=== PATIENT | female | born 1970 | race Caucasian/White ===

== ENCOUNTER 2024-03-02 01:19 | Observation (INO) | payer BC, SELFPAY ==
[2024-03-02] VITALS (30 sets, daily range): BP systolic 111–156; BP diastolic 52–82; PULSE 74–98; TEMP 36.7–37.2; O2SAT 96–100; BMI 36.8; BMI 35.1
--- NOTE | 2024-03-02 01:37 | ECG_ITS ---
[facility] Test Date: 2024-03-02 Pat Name: CHRISSIE ORDONEZ Department: Room: - Gender: Female [employer]: : 1970 Requested By: [id number] Order Number: [id number] Reading MD: SELINA IZQUIERDO Measurements Intervals Leon Rate: 81 P: 60 NH: 140 QRS: 51 QRSD: 78 T: 47 QT: 380 QTc: 417 Interpretive Statements 1100 Sinus rhythm 9110 normal ECG No previous ECG available for comparison Electronically Signed On 03-02-2024 7:01:07 EDT by SELINA IZQUIERDO
--- NOTE | 2024-03-02 01:37 | ED.GENADUL1 ---
HPI HPI - General Adult General Chief complaint: Weakness Stated complaint: GENERAL WEAKNESS VOMITING Time Seen by Provider: 03/02/24 01:20 Source: patient Mode of arrival: Wheelchair Limitations: no limitations History of Present Illness HPI narrative: 53-year-old female presents to the emergency department for the concern that she is anemic. She states she is a little bit weak. She states she was anemic 24 years ago and had to have a blood transfusion. That was her only blood transfusion ever. She still has regular monthly periods and is on her period yesterday which started yesterday. No syncope chest pain or abdominal pain. Related Data Home Medications ?Medication ?Instructions ?Recorded ?Confirmed No Known Home Medications 03/02/24 03/02/24 Allergies Allergy/AdvReac Type Severity Reaction Status Date / Time guaifenesin [From Mucinex] AdvReac Verified 03/02/24 01:29 Opioid HPI Opioid Management Most Recent Opioid Data: No Data to Display Review of Systems ROS Narrative A ten point review of systems is negative except as noted above. Exam Narrative Exam Narrative: Nurses note and vital signs reviewed and patient is not hypoxic. General: The patient appears well and in no apparent distress. Patient is resting comfortably on cart. Skin: Warm, dry, no pallor noted. There is no rash noted. Head: Normocephalic, atraumatic Eye: Normal conjunctiva, no drainage Ears, Nose, Mouth, and Throat: oral mucosa is moist. Nares patent. Cardiovascular: Regular Rate and Rhythm Respiratory: Patient is in no distress, no accessory muscle use, lungs are clear to auscultation, no wheezing, rales or rhonchi Back: non-tender GI: Soft and Musculoskeletal: The patient has no evidence of calf tenderness, no pitting edema, symmetrical pulses noted bilaterally Neurological: A&O, normal speech Psychiatric: Cooperative Constitutional Vital Signs, click to edit/add: Last Vital Signs Temp 99.0 F 03/02/24 03:34 Pulse 89 03/02/24 03:34 Resp 16 03/02/24 03:34 BP 127/81 03/02/24 03:34 Pulse Ox 100 03/02/24 03:34 O2 Del Method Room Air 03/02/24 01:38 Course Vital Signs Vital signs: Vital Signs Temperature 98.2 F 03/02/24 01:24 Pulse Rate 94 H 03/02/24 01:24 Respiratory Rate 18 03/02/24 01:24 Blood Pressure 122/52 03/02/24 01:24 Pulse Oximetry 100 03/02/24 01:24 Oxygen Delivery Method Room Air 03/02/24 01:24 Temperature 99.0 F 03/02/24 03:34 Pulse Rate 89 03/02/24 03:34 Respiratory Rate 16 03/02/24 03:34 Blood Pressure 127/81 03/02/24 03:34 Pulse Oximetry 100 03/02/24 03:34 Oxygen Delivery Method Room Air 03/02/24 01:38 Medical Decision Making MDM Narrative Medical decision making narrative: The patient presents with anemia, hemoglobin is 5.1. I suspect this is of long duration. She does not appear pale and she is not hypotensive or tachycardic. At this point I believe that her origin is going to be gynecologic. CAT scan is abnormal showing fibroid but also a mass in the endometrial cavity and a pelvic ultrasound was recommended. Blood is ordered and is being administered here and she is being admitted. Findings were discussed thoroughly with the patient. Differential Diagnosis Differential Diagnosis: Anemia, uterine cancer Lab Data Lab results reviewed: Yes I reviewed the patient's lab results Labs: Lab Results 03/02/24 Range/Units 01:34 WBC 22.8 H (4.0-11.0) 10^3/uL RBC 3.07 L (4.20-5.40) 10^6/uL Hgb 5.1 L* (12.0-16.0) g/dL Hct 20.7 L* (36.0-48.0) % MCV 67.4 L (81.0-99.0) fL MCH 16.6 L (26.7-34.0) pg MCHC 24.6 L (29.9-35.2) g/dL RDW 22.9 H (11.0-15.0) % Plt Count 322 (150-450) 10^3/uL Neut % (Auto) 84.2 H (43.0-75.0) % Lymph % (Auto) 11.3 L (20.5-60.0) % Falls % (Auto) 3.6 (1.7-12.0) % Eos % (Auto) 0.0 L (0.9-7.0) % Baso % (Auto) 0.2 (0.2-2.0) % Neut # (Auto) 19.2 H (1.4-6.5) 10^3/uL Lymph # (Auto) 2.6 (1.2-3.8) 10^3/uL [place] # (Auto) 0.8 (0.3-0.8) 10^3/uL Eos # (Auto) 0.0 (0.0-0.7) 10^3/uL Baso # (Auto) 0.0 (0.0-0.1) 10^3/uL Abs Immat Gran (auto) 0.16 H (0.00-0.03) 10^3/uL Imm/Tot Granulo (auto) 0.7 H (0.0-0.5) % PT 12.0 H (9.0-11.6) sec INR 1.14 APTT 20.9 L (22.3-36.2) sec Sodium 136 (136-145) mmol/L Potassium 4.3 (3.5-5.1) mmol/L Chloride 104 (98-107) mmol/L Carbon Dioxide 21.0 (21.0-32.0) mmol/L Anion Gap 15.3 BUN 18.0 (7.0-18.0) mg/dL Creatinine 1.48 H (0.55-1.02) mg/dL Est GFR ( Amer) 45 L (>=60) Est GFR (Non-Af Amer) 37 L (>=60) BUN/Creatinine Ratio 12.2 Glucose 170 H (74-106) mg/dL Calcium 8.8 (8.5-10.1) mg/dL Total Bilirubin 0.7 (0.2-1.0) mg/dL Direct Bilirubin 0.2 (0.0-0.2) mg/dL AST 23 (15-37) U/L ALT 22 (14-59) U/L Alkaline Phosphatase 80 (46-116) U/L Total Protein 7.3 (6.4-8.2) g/dL Albumin 3.2 L (3.4-5.0) g/dL Globulin 4.1 g/dL Albumin/Globulin Ratio 0.8 Amylase 24 L (25-115) U/L Lipase 21.0 (16.0-77.0) U/L Serum HCG, Qual Negative (NEGATIVE) Blood Type A Positive Antibody Screen Negative Crossmatch See Detail Imaging Data CT scan - abdomen: Radiologist's impression: ITS Impressions Abdomen/Pelvis CT 03/02/24 01:57 IMPRESSION: 1. There is a heterogeneously enhancing 4.9 centimeter structure seen in the fundus with cystic appearing areas. This may represent a degenerating fibroid. 2. There is soft tissue density seen within the endometrial cavity measuring up to 1.9 centimeters concerning for a mass. Endometrium appears thickened but this may also represent heterogeneous complex fluid within the endometrial cavity. 3. Pelvic ultrasound and/or MR is recommended for further evaluation due to concern for uterine malignancy. 4. Hydropic appearance of the gallbladder with a large gallstone. Mild surrounding inflammatory changes concerning for acute cholecystitis. Correlate with LFTs and right upper quadrant ultrasound can be considered for further evaluation as clinically warranted. 5. Mildly nodular contour of the liver suggesting cirrhosis. Electronically authenticated by: ADRIEN LEDEZMA Date: 03/02/2024 03:06 ECG Data Attestation: I personally reviewed and interpreted this ECG as follows: (EKG on my interpretation shows normal sinus rhythm with a rate of 81 and no acute change) Discharge Plan Discharge Chief Complaint: Weakness Clinical Impression: Anemia Patient Disposition: Admitted As Inpatient Time of Disposition Decision: 03:44 Condition: Good
[2024-03-02 01:44] LABS: Basophils Percent Auto 0.2 % (0.2-2.0); Immature Granulocytes Abs Auto 0.16 10^3/uL (0.00-0.03); Immature Granulocytes Pct Auto 0.7 % (0.0-0.5); Lymphocytes Absolute Auto 2.6 10^3/uL (1.2-3.8); Lymphocytes Percent Auto 11.3 % (20.5-60.0); Mean Corpuscular HGB Conc 24.6 g/dL (29.9-35.2); Mean Corpuscular Hemoglobin 16.6 pg (26.7-34.0); Mean Corpuscular Volume 67.4 fL (81.0-99.0); Monocytes Absolute Auto 0.8 10^3/uL (0.3-0.8); Monocytes Percent Auto 3.6 % (1.7-12.0); Neutrophils Absolute Auto 19.2 10^3/uL (1.4-6.5); Neutrophils Percent Auto 84.2 % (43.0-75.0); Platelet Count 322 10^3/uL (150-450); Red Blood Count 3.07 10^6/uL (4.20-5.40); Red Cell Distribution Width 22.9 % (11.0-15.0); White Blood Count 22.8 10^3/uL (4.0-11.0)
[2024-03-02 01:52] LABS: Hemoglobin 5.1 g/dL (12.0-16.0)
[2024-03-02 01:53] LABS: Hematocrit 20.7 % (36.0-48.0)
[2024-03-02 01:55] LABS: Anion Gap 15.3; BUN Creatinine Ratio 12.2; Calcium 8.8 mg/dL (8.5-10.1); Chloride 104 mmol/L (98-107); Estimated GFR (African America 45 (>=60); Estimated GFR (Non-African Ame 37 (>=60); Glucose 170 mg/dL (74-106); Potassium 4.3 mmol/L (3.5-5.1); Sodium 136 mmol/L (136-145)
--- NOTE | 2024-03-02 01:57 | CT_ITS ---
The [address] [address] Patient Name: CHRISSIE ORDONEZ MRN: [id number] date: 1970 Sex: F Assigned Patient Location: ER Current Patient Location: ER Accession/Order Number: [id number] Exam Date: 03/02/2024 02:18 Report Date: 03/02/2024 03:06 At the request of: TODD REDD Procedure: CT abdomen pelvis w con EXAM: CT abdomen pelvis w con HISTORY: Anemia COMPARISON: None. TECHNIQUE: CT abdomen and pelvis with intravenous contrast. Dose reduction techniques were achieved by using automated exposure control and/or adjustment of mA and/or kV according to patient size and/or use of iterative reconstruction technique. FINDINGS: TUBES AND IMPLANTS: None. LOWER CHEST: Unremarkable ABDOMEN and PELVIS ABDOMINAL WALL AND SOFT TISSUES: Unremarkable. BONES: Multilevel degenerative changes of the spine. Chronic appearing T12 compression deformity with loss of height centrally percent. ARTERIES: No aortoiliac aneurysm VEINS: Unremarkable. LYMPH NODES: Unremarkable. PERITONEUM/ RETROPERITONEUM: Unremarkable. BOWEL: No obstruction APPENDIX: Unremarkable LIVER: Mildly nodular contour. GALLBLADDER: Hydropic appearing with a large 2.3 centimeter stone stone . Mild surrounding inflammatory changes. BILE DUCTS: Not dilated SPLEEN: Unremarkable PANCREAS: Unremarkable. ADRENALS: Unremarkable. KIDNEYS/ URETERS: Unremarkable. REPRODUCTIVE ORGANS: There is a heterogeneously enhancing 4.9 centimeter structure seen in the fundus with cystic appearing areas. There are soft tissue density seen within the endometrial cavity measuring up to 1.9 centimeters. Endometrium appears thickened but this may represent heterogeneous complex fluid within the endometrial cavity. URINARY BLADDER: Unremarkable. CT/CT abdomen pelvis w con IMPRESSION: 1. There is a heterogeneously enhancing 4.9 centimeter structure seen in the fundus with cystic appearing areas. This may represent a degenerating fibroid. 2. There is soft tissue density seen within the endometrial cavity measuring up to 1.9 centimeters concerning for a mass. Endometrium appears thickened but this may also represent heterogeneous complex fluid within the endometrial cavity. 3. Pelvic ultrasound and/or MR is recommended for further evaluation due to concern for uterine malignancy. 4. Hydropic appearance of the gallbladder with a large gallstone. Mild surrounding inflammatory changes concerning for acute cholecystitis. Correlate with LFTs and right upper quadrant ultrasound can be considered for further evaluation as clinically warranted. 5. Mildly nodular contour of the liver suggesting cirrhosis. Electronically authenticated by: ADRIEN LEDEZMA Date: 03/02/2024 03:06
[2024-03-02 02:01] LABS: HCG Qualitative NEGATIVE (NEGATIVE)
[2024-03-02 02:12] LABS: INR 1.14; Partial Thromboplastin Time 20.9 sec (22.3-36.2)
[2024-03-02 02:18] LABS: Alanine Aminotransferase 22 U/L (14-59); Albumin Globulin Ratio 0.8; Albumin Level 3.2 g/dL (3.4-5.0); Alkaline Phosphatase 80 U/L (46-116); Amylase 24 U/L (25-115); Aspartate Amino Transferase 23 U/L (15-37); Bilirubin Direct 0.2 mg/dL (0.0-0.2); Bilirubin Total 0.7 mg/dL (0.2-1.0); Globulin 4.1 g/dL; Total Protein 7.3 g/dL (6.4-8.2)
[2024-03-02] MEDS: 0.9 % SODIUM CHLORIDE 250 ML IV.SOLN IV (03:15)
[2024-03-02 06:51] LABS: Lactate/Lactic Acid 4.5 mmol/L (0.4-2.0)
[2024-03-02 06:54] LABS: Percent Iron Saturation 3.8 %
--- NOTE | 2024-03-02 07:56 | US_ITS ---
[address] [address] Patient Name: CHRISSIE ORDONEZ MRN: [id number] date: 1970 Sex: F Assigned Patient Location: [place] Current Patient Location: [place] Accession/Order Number: [id number] Exam Date: 03/02/2024 09:20 Report Date: 03/02/2024 10:25 At the request of: ANDREA SMITH Procedure: US pelvis EXAMINATION: US pelvis HISTORY: uterine mass COMPARISON: CT abdomen pelvis 03/02/2024 TECHNIQUE: Transabdominal and/or transvaginal sonographic examination was performed as indicated by examination type. FINDINGS: UTERUS: Within fundal myometrium is a 5.0 x 4.9 x 4.9 cm heterogeneous avascular mass which appears to contact the fundal endometrium. Uterus size: 14.5 x 8.4 x 6.3 cm ENDOMETRIUM: Approaches upper limits of normal in thickness. No appreciable mass or increased vascularity. Endometrial thickness: 13 mm RIGHT OVARY: Normal size and appearance. Blood flow present within ovary on color Doppler. Ovary size: 3.7 x 3.6 x 2.3 cm LEFT OVARY: Not seen. No suspicious adnexal findings. CUL-DE-SAC: Unremarkable. No significant free fluid. BLADDER: Unremarkable. OTHER: None. US/US pelvis IMPRESSION: 1. Heterogeneous 5.0 cm mass within uterine fundus suspected represent a leiomyoma. This appears to contact the margin of the endometrium and may contribute to vaginal bleeding. 2. No appreciable endometrial mass. Thickness approaches upper limits of normal, but is otherwise unremarkable. Electronically authenticated by: NILS KWON Date: 03/02/2024 10:25
--- NOTE | 2024-03-02 07:57 | CM.NOTE ---
Rounds made with Dr. Fuller, will consult Dr. Perez and bone cooking operator for further recommendations. Possible discharge this afternoon if pt remains stable.
--- NOTE | 2024-03-02 08:07 | P.HP_ITS ---
HPI H&P: HPI History of Present Illness Chief complaint: GENERAL WEAKNESS VOMITING ANEMIA Narrative: Patient with a history of anemia 24 years ago presented to emergency room with increasing weakness and felt her anemia was back. There is no etiology found back 24 years ago, she states she does have a strong family history of anemia. She has not seen a doctor in decades. When I saw her up in the medical surgical floor, she was in bed resting comfortably, denies any complaints including abdominal pain. Overall she does feel somewhat improved from admission. Patient denies melena, hematochezia, hematic hematemesis, she does states she has been having some heavy periods lately. Opioid HPI Opioid Management Most Recent Opioid Data: Last Pain Assessment 03/02/24 08:01 Last ORT Total Score 0 03/02/24 04:22 Last ORT Risk Category Low Risk 03/02/24 04:22 Review of Systems ROS Status of ROS 10 or more systems reviewed and unremark able except as noted in history and below PFS PFS Medical History (Updated 03/02/24 @ 04:34 by April Ray RN) Heart murmur ?R01.1 - Cardiac murmur, unspecified (ICD-10) Family History (Updated 03/02/24 @ 04:35 by April Ray, ZAID) Other Family history of CHF (congestive heart failure) Family history of COPD (chronic obstructive pulmonary disease) Family history of cancer Family history of diabetes mellitus Family history of stroke Social History (Updated 03/02/24 @ 04:37 by April Ray RN) Within the past year, how often did you have a drink containing alcohol: monthly or less Within the past year, how many standard drinks containing alcohol did you have on a typical day: 1 or 2 Total score: 0 Score interpretation: A score less than 3 is consistent with normal alcohol consumption. Smoking status: Former smoker Non-prescribed substance use: denies use Highest level of school completed/degree received: high school graduate Are you now , , , , never or living with a partner: In a typical week, how many times do you talk on the telephone with family, friends, or neighbors: 3 or more times per week How often do you get together with friends or relatives: 3 or more times per week How often do you attend hinduism or mormon services: never Little interest or pleasure in doing things: not at all Feeling down, depressed, or hopeless: not at all Feel stressed/tense/nervous/anxious/difficulty sleeping: rather much Do you think of yourself as: straight/heterosexual Gender Identity: female Meds Home Medications and Allergies Home Medications ?Medication ?Instructions ?Recorded ?Confirmed ?Type No Known Home Medications 03/02/24 03/02/24 History Allergies Allergy/AdvReac Type Severity Reaction Status Date / Time guaifenesin [From Mucinex] AdvReac Verified 03/02/24 01:29 Exam Constitutional Vital Signs, click to edit/add: Last Vital Signs Temp 98.8 F 03/02/24 08:03 Pulse 78 03/02/24 08:03 Resp 16 03/02/24 08:03 BP 156/76 H 03/02/24 08:03 Pulse Ox 98 03/02/24 07:03 O2 Del Method Room Air 03/02/24 07:03 Documenting provider has reviewed patient's vital signs: yes Common normals: no apparent distress Chest Common normals: inspection of chest normal Respiratory Common normals: normal respiratory effort and no retractions Cardio Common normals: regular rate and regular rhythm; murmurs detected (Patient with longstanding history of heart murmur) Heart sounds: murmur continuous and systolic GI Common normals: Normal to inspection, nondistended, normoactive bowel sounds present, soft to palpation, non-tender, no hepatosplenomegaly and no masses Results Labs Labs: Short CBC 03/02/24 Range/Units 01:34 WBC 22.8 H (4.0-11.0) 10^3/uL Hgb 5.1 L* (12.0-16.0) g/dL Hct 20.7 L* (36.0-48.0) % Plt Count 322 (150-450) 10^3/uL BMP 03/02/24 01:34 Sodium 136 Potassium 4.3 Chloride 104 Carbon Dioxide 21.0 BUN 18.0 Creatinine 1.48 H Glucose 170 H Calcium 8.8 Liver Function 03/02/24 Range/Units 01:34 Total Bilirubin 0.7 (0.2-1.0) mg/dL Direct Bilirubin 0.2 (0.0-0.2) mg/dL AST 23 (15-37) U/L ALT 22 (14-59) U/L Alkaline Phosphatase 80 (46-116) U/L Albumin 3.2 L (3.4-5.0) g/dL Assessment and Plan Assessment and Plan (1) Anemia: (2) Heart murmur: Plan Respiratory distress, weakness, severe anemia, leukocytosis-possibly has underlying chronic anemia, exacerbated by her heavy periods recently. Transfused 2 units so far. Depending on results of hemoglobin later today if stable later today likely discharge to home and can continue workup as an outpatient. Leukocytosis-no certain infectious etiology elucidated but with positive lactate she was placed on IV antibiotics. Follow-up lactate is pending. As well as repeat white blood cell count. Leukocytosis may be secondary to the anemia as well. Uterine fibroid but also possible mass, this may be just representing intrauterine blood products secondary to the bleeding with her period currently. Will reassess vaginal bleeding later today. Consider Provera. Follow-up with gynecology as an outpatient. Gallstones-patient without right upper quadrant tenderness. Can monitor as an outpatient CT scan is consistent with possible early cirrhosis. But liver function test are normal, patient denies drinking Mildly elevated BUN and creatinine-likely related to dehydration in the anemia. Monitor as an outpatient Hyperglycemia on admission likely nonfasting Mild protein calorie malnutrition-monitor as an outpatient, diet supplementation Admission status: With possible recurrence of anemia and likely related to her vaginal bleeding, patient likely discharged home later today so we will keep as observation status from the beginning of the admission.
[2024-03-02] MEDS: ERTAPENEM SODIUM 1 GM in 0.9 % SODIUM CHLORIDE 50 ML IV (09:02)
[2024-03-02 09:14] LABS: Basophils Percent Auto 0.2 % (0.2-2.0); Eosinophils Absolute Auto 0.1 10^3/uL (0.0-0.7); Eosinophils Percent Auto 0.6 % (0.9-7.0); Hematocrit 26.3 % (36.0-48.0); Hemoglobin 7.6 g/dL (12.0-16.0); Immature Granulocytes Abs Auto 0.14 10^3/uL (0.00-0.03); Immature Granulocytes Pct Auto 0.6 % (0.0-0.5); Lymphocytes Absolute Auto 3.1 10^3/uL (1.2-3.8); Lymphocytes Percent Auto 14.1 % (20.5-60.0); Mean Corpuscular Hemoglobin 21.2 pg (26.7-34.0); Monocytes Absolute Auto 1.2 10^3/uL (0.3-0.8); Monocytes Percent Auto 5.3 % (1.7-12.0); Neutrophils Absolute Auto 17.2 10^3/uL (1.4-6.5); Neutrophils Percent Auto 79.2 % (43.0-75.0); Platelet Count 234 10^3/uL (150-450); Red Blood Count 3.59 10^6/uL (4.20-5.40); White Blood Count 21.7 10^3/uL (4.0-11.0)
[2024-03-02 09:44] LABS: Alanine Aminotransferase 24 U/L (14-59); Albumin Globulin Ratio 0.7; Albumin Level 2.9 g/dL (3.4-5.0); Alkaline Phosphatase 78 U/L (46-116); Anion Gap 12.8; Aspartate Amino Transferase 27 U/L (15-37); BUN Creatinine Ratio 17.7; Bilirubin Total 1.8 mg/dL (0.2-1.0); Calcium 8.8 mg/dL (8.5-10.1); Carbon Dioxide 24.4 mmol/L (21.0-32.0); Chloride 102 mmol/L (98-107); Estimated GFR (African America >60 (>=60); Estimated GFR (Non-African Ame >60 (>=60); Globulin 3.9 g/dL; Glucose 119 mg/dL (74-106); Potassium 4.2 mmol/L (3.5-5.1); Sodium 135 mmol/L (136-145); Total Protein 6.8 g/dL (6.4-8.2)
[2024-03-02 09:46] LABS: Lactate/Lactic Acid 1.1 mmol/L (0.4-2.0)
[2024-03-02 09:51] LABS: Mean Corpuscular HGB Conc 28.9 g/dL (29.9-35.2)
[2024-03-02 09:52] LABS: Mean Corpuscular Volume 73.3 fL (81.0-99.0)
[2024-03-02 10:45] LABS: Bilirubin Urine NEGATIVE (NEGATIVE); Blood Urine LARGE (NEGATIVE); Clarity Urine CLEAR (CLEAR); Color Urine YELLOW (YELLOW); Glucose Urine UA NEGATIVE (NEGATIVE); Ketones Urine NEGATIVE (NEGATIVE); Leukocyte Esterase Urine NEGATIVE (NEGATIVE); Nitrite Urine NEGATIVE (NEGATIVE); Protein Urine NEGATIVE (NEG/TRACE); Urobilinogen Urine 0.2 EU/dL (0.2-1.0); pH Urine 5.5 (5.0-9.0)
[2024-03-02 10:56] LABS: RBC Urine 20-50 #/HPF (0-2); WBC Urine 0-2 #/HPF (NONE SEEN)
[2024-03-02 10:57] LABS: Bacteria Urine TRACE #/HPF (NONE SEEN); Cast Seen? NONE SEEN #/LPF (NONE SEEN); Crystals Seen? None Seen #/HPF (None Seen); Mucus Urine NONE SEEN (NONE SEEN); Squamous Epithelial Cell Urine RARE #/LPF (NONE/RARE); Urine Culture Indicated ALREADY ORDERED
[2024-03-02 14:40] LABS: Basophils Absolute Auto 0.1 10^3/uL (0.0-0.1); Basophils Percent Auto 0.3 % (0.2-2.0); Eosinophils Percent Auto 0.1 % (0.9-7.0); Hematocrit 24.2 % (36.0-48.0); Hemoglobin 7.1 g/dL (12.0-16.0); Immature Granulocytes Abs Auto 0.12 10^3/uL (0.00-0.03); Immature Granulocytes Pct Auto 0.6 % (0.0-0.5); Lymphocytes Absolute Auto 3.5 10^3/uL (1.2-3.8); Lymphocytes Percent Auto 16.8 % (20.5-60.0); Mean Corpuscular HGB Conc 29.3 g/dL (29.9-35.2); Mean Corpuscular Hemoglobin 20.8 pg (26.7-34.0); Mean Platelet Volume 10.4 fL (9.5-13.5); Monocytes Absolute Auto 1.5 10^3/uL (0.3-0.8); Monocytes Percent Auto 7.1 % (1.7-12.0); Neutrophils Absolute Auto 15.5 10^3/uL (1.4-6.5); Neutrophils Percent Auto 75.1 % (43.0-75.0); Platelet Count 218 10^3/uL (150-450); Red Blood Count 3.41 10^6/uL (4.20-5.40); White Blood Count 20.7 10^3/uL (4.0-11.0)
[2024-03-02 14:41] LABS: Red Cell Distribution Width 25.3 % (11.0-15.0)
--- NOTE | 2024-03-02 14:58 | P.DS_ITS ---
DS: Providers Provider Date of admission: 03/02/24 09:05 Primary care physician: Non-Staff Physician, DS: Diagnosis Discharge Diagnosis (1) Anemia: (2) Heart murmur: Plan Respiratory distress, weakness, severe anemia, leukocytosis-possibly has underlying chronic anemia, exacerbated by her heavy periods recently. Transfused 2 units so far. Hemoglobin came up 2 points Leukocytosis-no certain infectious etiology elucidated but with positive lactate she was placed on IV antibiotics. Improving at the time of discharge no focal infection found, discharging with antibiotics Uterine fibroid but also possible mass, this may be just representing intrauterine blood products secondary to the bleeding with her period currently. Follow up with SEARCH CONSULTANT Gallstones-patient without right upper quadrant tenderness. Can monitor as an outpatient CT scan is consistent with possible early cirrhosis. Monitor as an outpatient Mildly elevated BUN and creatinine-likely related to dehydration in the anemia. Monitor as an outpatient Hyperglycemia on admission likely nonfasting Mild protein calorie malnutrition-monitor as an outpatient, diet supplementation Admission status: With possible recurrence of anemia and likely related to her vaginal bleeding, patient likely discharged home later today so we will keep as observation status from the beginning of the admission. ? DS: Summary Hospital Course Hospital Course: Patient admitted with increasing weakness and found to have significant anemia. She was given 2 units of PRBCs with improvement in her hemoglobin by 2 points. She does feel much improved. The option of staying on monitoring blood work 1 additional day was presented to her, she was comfortable going home and following up with blood work tomorrow. She also follow-up with hematology and SEARCH CONSULTANT. And needs to establish to PCP. Status at Discharge Overall status at discharge: patient is not back to baseline Time Spent with Patient Time attestation: Total time spent providing and/or coordinating discharge services: Time spent: greater than 30 minutes Exam Constitutional Vital Signs, click to edit/add: Last Vital Signs Temp 98.3 F 03/02/24 13:06 Pulse 78 03/02/24 13:06 Resp 18 03/02/24 13:06 BP 133/82 03/02/24 13:06 Pulse Ox 96 03/02/24 13:06 O2 Del Method Room Air 03/02/24 13:06 Documenting provider has reviewed patient's vital signs: yes Common normals: no apparent distress Chest Common normals: inspection of chest normal Respiratory Common normals: normal respiratory effort and no retractions Cardio Common normals: regular rate and regular rhythm; murmurs detected (Patient with longstanding history of heart murmur) Heart sounds: murmur continuous and systolic GI Common normals: Normal to inspection, nondistended, normoactive bowel sounds present, soft to palpation, non-tender, no hepatosplenomegaly and no masses DS: Data Data Completed and Pending Labs on day of discharge: Labs from last 24 hours 03/02/24 03/02/24 03/02/24 14:30 10:34 09:06 WBC 20.7 H 21.7 H RBC 3.41 L 3.59 L Hgb 7.1 L 7.6 L Hct 24.2 L 26.3 L MCV 71.0 L 73.3 L MCH 20.8 L 21.2 L MCHC 29.3 L 28.9 L RDW 25.3 H 26.0 H Plt Count 218 234 MPV 10.4 Neut % (Auto) 75.1 H 79.2 H Lymph % (Auto) 16.8 L 14.1 L [place] % (Auto) 7.1 5.3 Eos % (Auto) 0.1 L 0.6 L Baso % (Auto) 0.3 0.2 Neut # (Auto) 15.5 H 17.2 H Lymph # (Auto) 3.5 3.1 [place] # (Auto) 1.5 H 1.2 H Eos # (Auto) 0.0 0.1 Baso # (Auto) 0.1 0.0 Abs Immat Gran (auto) 0.12 H 0.14 H Imm/Tot Granulo (auto) 0.6 H 0.6 H PT INR APTT Sodium 135 L Potassium 4.2 Chloride 102 Carbon Dioxide 24.4 Anion Gap 12.8 BUN 17.0 Creatinine 0.96 Est GFR ( Amer) >60 Est GFR (Non-Af Amer) >60 BUN/Creatinine Ratio 17.7 Glucose 119 H Lactate 1.1 Calcium 8.8 Iron TIBC % Saturation Ferritin Total Bilirubin 1.8 H Direct Bilirubin AST 27 ALT 24 Alkaline Phosphatase 78 Total Protein 6.8 Albumin 2.9 L Globulin 3.9 Albumin/Globulin Ratio 0.7 Amylase Lipase Serum HCG, Qual Urine Color Yellow Urine Clarity Clear Urine pH 5.5 Ur Specific [place] 1.010 Urine Protein Negative Urine Glucose (UA) Negative Urine Ketones Negative Urine Occult Blood Large A Urine Nitrite Negative Urine Bilirubin Negative Urine Urobilinogen 0.2 Ur Leukocyte Esterase Negative Urine RBC 20-50 A Urine WBC 0-2 A Ur Squamous Epith Cells Rare Urine Crystals None seen Urine Bacteria Trace A Urine Casts None seen Urine Mucus None seen Ur Culture Indicated? Already ordered Blood Type Antibody Screen Crossmatch 03/02/24 01:34 WBC 22.8 H RBC 3.07 L Hgb 5.1 L* Hct 20.7 L* MCV 67.4 L MCH 16.6 L MCHC 24.6 L RDW 22.9 H Plt Count 322 MPV Neut % (Auto) 84.2 H Lymph % (Auto) 11.3 L [place] % (Auto) 3.6 Eos % (Auto) 0.0 L Baso % (Auto) 0.2 Neut # (Auto) 19.2 H Lymph # (Auto) 2.6 [place] # (Auto) 0.8 Eos # (Auto) 0.0 Baso # (Auto) 0.0 Abs Immat Gran (auto) 0.16 H Imm/Tot Granulo (auto) 0.7 H PT 12.0 H INR 1.14 APTT 20.9 L Sodium 136 Potassium 4.3 Chloride 104 Carbon Dioxide 21.0 Anion Gap 15.3 BUN 18.0 Creatinine 1.48 H Est GFR ( Amer) 45 L Est GFR (Non-Af Amer) 37 L BUN/Creatinine Ratio 12.2 Glucose 170 H Lactate 4.5 H* Calcium 8.8 Iron 17.0 L TIBC 445.0 % Saturation 3.8 Ferritin 4.0 L Total Bilirubin 0.7 Direct Bilirubin 0.2 AST 23 ALT 22 Alkaline Phosphatase 80 Total Protein 7.3 Albumin 3.2 L Globulin 4.1 Albumin/Globulin Ratio 0.8 Amylase 24 L Lipase 21.0 Serum HCG, Qual Negative Urine Color Urine Clarity Urine pH Ur Specific [place] Urine Protein Urine Glucose (UA) Urine Ketones Urine Occult Blood Urine Nitrite Urine Bilirubin Urine Urobilinogen Ur Leukocyte Esterase Urine RBC Urine WBC Ur Squamous Epith Cells Urine Crystals Urine Bacteria Urine Casts Urine Mucus Ur Culture Indicated? Blood Type A Positive Antibody Screen Negative Crossmatch See Detail Discharge Plan Discharge Disposition: Home, Self-Care Condition: Good Discharge Medications: New ferrous sulfate 325 mg (65 mg iron) tablet 325 mg PO BID Qty: 60 11RF levofloxacin 750 mg tablet 750 mg PO DAILY 10 Days Qty: 10 0RF Outpatient Diagnostics: Complete Blood Count Auto Diff (Routine) Timeframe: 1 Day Facility: [facility] - Location: Patient Own Location Ordered By: Tobin Fuller Activity: resume usual activities as tolerated Diet: regular diet Print Language: Yakut Patient Instructions: Anemia (DC) Forms: Portal Instructions Follow Up Appointments: March 04 @ 1:30pm with Dr. Perez [phone] *make sure to bring your photo ID and insurance cards with you Sat. March 06 @ 10:00am with Dr. Rankin [phone] *make sure to bring your photo ID and insurance cards with you . March 24 @ 8:45am with Dr. Ty (Hematology) at [facility] [phone] *bring any daily medications in their original bottles to this appt.
--- NOTE | 2024-03-03 14:47 | CM.DCFOLLOWU ---
1st attempt, no answer 03/03/24
--- NOTE | 2024-03-06 15:51 | CM.DCFOLLOWU ---
Person spoke with: patient How are you feeling? well How is your pain? no pain Did you understand your discharge instructions? yes Do you have any questions about your discharge instructions? no Were you given any prescriptions at discharge? yes Were you able to get your prescriptions filled? yes Do you understand how to take your medications as ordered? yes Do you have any questions about your follow up appointment and do you plan to keep your follow up appointment? no questions reviewed follow ups with pt Is there anything else that you would like to discuss? no Questions/Comments/Concerns/Other: no
== END 2024-03-02 16:22 | disposition home or self-care (01) ==
LOC: ER 03:52 → MS 06:47
PROVIDERS: Nurse Practitioner Acute Care; Admitting Provider Family Medicine; Emergency Provider Emergency Medicine; Visit Provider Family Medicine
DX: D62 Acute posthemorrhagic anemia (principal); R06.03 Acute respiratory distress; D72.829 Elevated white blood cell count, unspecified; D25.9 Leiomyoma of uterus, unspecified; K80.20 Calculus of gallbladder without cholecystitis without obstruction; R79.89 Other specified abnormal findings of blood chemistry; R73.9 Hyperglycemia, unspecified; E44.1 Mild protein-calorie malnutrition; R01.1 Cardiac murmur, unspecified; N92.0 Excessive and frequent menstruation with regular cycle; Z68.35 Body mass index [BMI] 35.0-35.9, adult; Z87.891 Personal history of nicotine dependence
CPT/HCPCS: 36415; 74177; 76856; 80048; 80053; 80076; 81001; 82150; 82728; 83540; 83550; 83605; 83690; 84703; 85014; 85018; 85025; 85610; 85730; 86850; 86900; 86901; 87086; 93005; 96365; 99285; G0328; G0378; J1335; P9016; Q9967

== ENCOUNTER 2024-03-03 16:25 | Outpatient (OUT) | payer BC, SELFPAY ==
[2024-03-03 16:38] LABS: Basophils Absolute Auto 0.1 10^3/uL (0.0-0.1); Basophils Percent Auto 0.5 % (0.2-2.0); Eosinophils Absolute Auto 0.2 10^3/uL (0.0-0.7); Eosinophils Percent Auto 1.3 % (0.9-7.0); Immature Granulocytes Abs Auto 0.05 10^3/uL (0.00-0.03); Immature Granulocytes Pct Auto 0.4 % (0.0-0.5); Lymphocytes Absolute Auto 3.2 10^3/uL (1.2-3.8); Lymphocytes Percent Auto 24.4 % (20.5-60.0); Mean Corpuscular HGB Conc 28.2 g/dL (29.9-35.2); Mean Corpuscular Hemoglobin 20.6 pg (26.7-34.0); Mean Corpuscular Volume 73.2 fL (81.0-99.0); Mean Platelet Volume 10.2 fL (9.5-13.5); Monocytes Absolute Auto 0.9 10^3/uL (0.3-0.8); Monocytes Percent Auto 6.7 % (1.7-12.0); Neutrophils Absolute Auto 8.8 10^3/uL (1.4-6.5); Neutrophils Percent Auto 66.7 % (43.0-75.0); Platelet Count 256 10^3/uL (150-450); Red Blood Count 3.25 10^6/uL (4.20-5.40); Red Cell Distribution Width 25.7 % (11.0-15.0); White Blood Count 13.2 10^3/uL (4.0-11.0)
[2024-03-03 16:42] LABS: Hematocrit 23.8 % (36.0-48.0); Hemoglobin 6.7 g/dL (12.0-16.0)
== END 2024-03-03 16:26 | disposition home or self-care (01) ==
LOC: LAB 16:26
PROVIDERS: Visit Provider Family Medicine
DX: D64.9 Anemia, unspecified (principal)
CPT/HCPCS: 36415; 85025

== ENCOUNTER 2024-03-04 14:45 | Outpatient (RCR) | payer BC, SELFPAY ==
[2024-03-04 14:57] VITALS: BP 147/69; PULSE 78; TEMP 37.5; O2SAT 97
--- NOTE | 2024-03-04 15:05 | PC.NURSE ---
1445 Arrival ambulatory to chair 3, alert and oriented, denies any complaints, alert oriented, lungs clear to auscultation, heart tones strong regular with murmur noted. Educated on blood transfusions s/s of reaction. verbalizes understanding. 1450 IV initiated #22 rt inner forearm, tolerated well. NS initiated at kvo.
[2024-03-04 15:13] VITALS: BP 138/76; PULSE 69; TEMP 37.6
[2024-03-04 15:14] VITALS: BP 124/62; PULSE 72; TEMP 37; O2SAT 100
--- NOTE | 2024-03-04 15:16 | PC.NURSE ---
tolerating prbc's withoutnay issues, rate increased to 200 ml hr.
--- NOTE | 2024-03-04 16:11 | PC.NURSE ---
1610 prbc'd infused, ns flush initiated, tolerated well. lungs clear throughout posteriorly, heart tones strong and regular.
--- NOTE | 2024-03-04 16:23 | PC.NURSE ---
Flush completed. IV dc'd catheter intact. covered with cottonball and coban, tolerated well. Released ambulatory
== END 2024-03-04 16:00 | disposition home or self-care (01) ==
LOC: INF 14:45
PROVIDERS: Visit Provider Family Medicine
DX: D64.9 Anemia, unspecified (principal)
CPT/HCPCS: 36415; 36430; 86850; 86900; 86901; P9016

== ENCOUNTER 2024-03-05 14:45 | Outpatient (OUT) | payer BC, SELFPAY | END 2024-03-05 14:46 | disposition home or self-care (01) | LOC: PST 14:46 | PROVIDERS: Visit Provider Surgery | DX: Z01.818 Encounter for other preprocedural examination (principal); D50.9 Iron deficiency anemia, unspecified; N85.8 Other specified noninflammatory disorders of uterus ==

== ENCOUNTER 2024-03-06 08:39 | Day surgery (SDC) | payer BC, SELFPAY ==
[2024-03-05 15:23] VITALS: BP 126/71; PULSE 85; TEMP 36.3; O2SAT 99; BMI 36.4
[2024-03-06 08:55] VITALS: BP 136/87; PULSE 68; TEMP 36.6; O2SAT 100; BMI 36.3
[2024-03-06 08:59] LABS: Basophils Absolute Auto 0.1 10^3/uL (0.0-0.1); Basophils Percent Auto 0.9 % (0.2-2.0); Eosinophils Absolute Auto 0.2 10^3/uL (0.0-0.7); Eosinophils Percent Auto 3.1 % (0.9-7.0); Hematocrit 27.7 % (36.0-48.0); Hemoglobin 7.9 g/dL (12.0-16.0); Immature Granulocytes Abs Auto 0.03 10^3/uL (0.00-0.03); Immature Granulocytes Pct Auto 0.4 % (0.0-0.5); Lymphocytes Absolute Auto 1.6 10^3/uL (1.2-3.8); Mean Corpuscular HGB Conc 28.5 g/dL (29.9-35.2); Mean Corpuscular Hemoglobin 21.5 pg (26.7-34.0); Mean Corpuscular Volume 75.3 fL (81.0-99.0); Monocytes Absolute Auto 0.5 10^3/uL (0.3-0.8); Monocytes Percent Auto 6.6 % (1.7-12.0); Platelet Count 244 10^3/uL (150-450); Red Cell Distribution Width 26.5 % (11.0-15.0); White Blood Count 7.4 10^3/uL (4.0-11.0)
[2024-03-06 09:15] LABS: HCG Quantitative <1 mIU/mL
[2024-03-06] MEDS: LACTATED RINGER'S SOLUTION 1,000 ML 50 ML IV (09:24)
[2024-03-06 09:30] LABS: Red Blood Count 3.68 10^6/uL (4.20-5.40)
--- NOTE | 2024-03-06 10:44 | P.ON_ITS ---
Brief Operative Note Date of procedure: 03/06/24 Pre-op diagnosis general: acute blood loss anemia, menorrhagia Post-op diagnosis: same as pre-op Procedure: NAME OF PROCEDURE: [ D&c hysteroscopy with myosure and polypectomy] prolapsed submucosal fibroid PROCEDURE: The patient was taken back to the Operating Room where she was prepped and draped in normal sterile fashion after being placed under general anesthesia without difficulty. She was also placed in the dorsal lithotomy position. A weighted speculum was placed in the patient?s vagina. The anterior lip of the cervix was identified and grasped with a single tooth tenaculum. The patient?s uterus was then sounded roughly to [? 8] cm. The patient was then gently dilated using Hegar dilators. The hysteroscope was passed through the patient?s cervix into the uterus. Both ostia were identified. fluffy appearing endometrium. No gross evidence of malignancy, gross evidence of fibroid with prolapse through the cervix. significant amount of endometrial polyps The myosure apparatus was placed through the scope, The myosure was engaged and endometrial curretting were removed along with endometrial polyp, The hysteroscope was then removed fro m the uterus. The endometrial curettings were sent out to pathology. The single tooth tenaculum was then removed from the patient's anterior lip of the cervix where excellent hemostasis was noted. All instruments were removed from the patient?s vagina. The patient tolerated the procedure well. Sponge, lap and needle counts were correct times two. The patient was taken to the Recovery Room in stable condition.Room in stable condition. Anesthesia: CARSON Surgeon: Aric Perez Estimated blood loss (mL): 10 Pathology: other (endometrial polyp, fibroid and currettings) Condition: stable Disposition: PACU Urinary Catheter Management Urinary Catheter Management Urethral: Cath placed during this visit: no
[2024-03-06 10:54] VITALS: BP 118/59; PULSE 74; O2SAT 94
[2024-03-06 11:00] VITALS: BP 101/46; PULSE 60; O2SAT 100
--- NOTE | 2024-03-06 11:13 | PC.NURSE ---
Peripad changed for small amount bloody drainage
[2024-03-06 11:16] VITALS: BP 123/59; PULSE 65; O2SAT 95
[2024-03-06] MEDS: LACTATED RINGER'S SOLUTION 1,000 ML 150 ML IV (11:49)
--- NOTE | 2024-03-06 12:36 | PC.NURSE ---
1220: pt voids without difficulty.
== END 2024-03-06 12:45 | disposition home or self-care (01) ==
PROVIDERS: Visit Provider Obstetrics & Gynecology
PROC: (CPT 952; principal; 2024-03-06 09:40)
DX: N85.8 Other specified noninflammatory disorders of uterus (principal); D50.9 Iron deficiency anemia, unspecified; N84.0 Polyp of corpus uteri; D25.0 Submucous leiomyoma of uterus
CPT/HCPCS: 58558; 36415; 84702; 85025; 88305; J1094; J2704

== ENCOUNTER 2024-03-24 07:42 | Outpatient (RCR) | payer BC, SELFPAY | END 2024-04-03 23:59 | disposition home or self-care (01) | LOC: INF 07:42 | PROVIDERS: Visit Provider Internal Medicine Hematology & Oncology | DX: D50.9 Iron deficiency anemia, unspecified (principal); K90.9 Intestinal malabsorption, unspecified; D72.829 Elevated white blood cell count, unspecified | CPT/HCPCS: G0463 ==

== ENCOUNTER 2024-04-15 07:34 | Outpatient (RCR) | payer BC, SELFPAY ==
[2024-04-08] MEDS: FERUMOXYTOL 510 MG in 0.9 % SODIUM CHLORIDE 100 ML 234 MG IV (15:18)
[2024-04-08 15:26] VITALS: BP 138/86; PULSE 69; TEMP 36.1; O2SAT 98
--- NOTE | 2024-04-08 15:29 | PC.NURSE ---
1500 Arrival ambulatory, alert oriented. Explained infusion, purpose and possible s/s of reaction, patient verbalizes understanding.
[2024-04-15 14:48] VITALS: BP 129/86; PULSE 72; TEMP 36.6; O2SAT 96
--- NOTE | 2024-04-15 14:55 | PC.NURSE ---
1448: Pt. to [facility] amb. for iron infusion. Seated in recliner. VSS. IV initiated to right forearm per. ZAID Figueredo without difficulty. Pt. tolerated well. Denies needs or c/o.
[2024-04-15] MEDS: FERUMOXYTOL 510 MG in 0.9 % SODIUM CHLORIDE 100 ML 234 MG IV (15:07)
--- NOTE | 2024-04-15 15:15 | PC.NURSE ---
1507: IV George initiated at this time.
--- NOTE | 2024-04-15 15:43 | PC.NURSE ---
1538: IV George completed at this time. Pt. without s&s of adverse reaction. IV d/c'd, pressure to site. Pt. d/c'd amb. to home.
== END 2024-04-15 16:00 | disposition home or self-care (01) ==
LOC: INF 07:34
PROVIDERS: Visit Provider Internal Medicine Hematology & Oncology
DX: D50.9 Iron deficiency anemia, unspecified (principal); K90.9 Intestinal malabsorption, unspecified; D72.829 Elevated white blood cell count, unspecified
CPT/HCPCS: 96365; Q0138

== ENCOUNTER 2025-06-08 09:08 | Outpatient (OUT) | payer BC, SELFPAY ==
--- OUTSIDE RECORDS SUMMARY | 2025-06-08 09:11 | XMS_ITS | Encounter Summary ---
Author Organization [facility] Address [address] [place] [address] Care Team Providers Care Apartment House Manager Name Role Phone Tobin Fuller MD Primary Care Provider + Dayne Abad MD Unavailable [phone] Encounter Details Date Type Department Care Team (Late st Contact Info) Description 04/01/2024 Abstract [facility] [address] [place] [id number] Aric Perez DO [address] [place] [address] Social History Tobacco Use Types Packs/Day Years Used Date Smoking Tobacco: Never Smokeless Tobacco: Never Alcohol Use Standard Drinks/Week Comments Never 0 (1 standard drink = 0.6 oz pur e alcohol) Comments Unknown Sex and Gender Information Value Date Recorded Sex Assigned at Female 03/03/2024 11:49 AM EDT Legal Sex Female 10:43 AM EDT Gender Identity Female 03/03/2024 11:49 AM EDT Sexual Orientation Not on file documented as of this encounter Plan of Treatment Not on file documented as of this encounter Visit Diagnoses Not on filedocumented in this encounter Care Teams Apartment House Manager Relationship Specialty Start Date End Date Tobin Fuller MD PCP - General Family Medicine 03/02/24 Dayne Abad MD [address] [place] [address] PCP - [place] [employer] 05/04/2410/03 documented as of this encounter
--- OUTSIDE RECORDS SUMMARY | 2025-06-08 09:11 | XMS_ITS | Clinical Summary ---
Author Organization [facility] Address [address] [place] [address] Care Team Providers Care Corn Chip Maker Name Role Phone Tobin Fuller MD Primary Care Provider [phone] Allergies Active Allergy Reactions Criticality Noted Date Comments Guaifenesin 03/04/2024 Vision changes Medications ferrous sulfate 325 (65 Fe) MG tablet Take 325 mg by mouth in the morning. Take with meals. Active terbinafine (LamISIL) 250 MG tabletIndication s:Onychomycosis Take 1 po daily x 6 weeks 42 tablet 04/02/2024 Active metroNIDAZOLE (Metrogel) 1 % gelIndications:O ther rosacea Apply to face once a day/30 days 60 g 11 04/02/2024 Active Active Problems Problem Noted Date Diagnosed Date Iron deficiency anemia due to chronic blood loss 03/09/2024 Rosacea 03/09/2024 Heart murmur, systolic 03/09/2024 Gallstone 03/09/2024 Family history of breast cancer 03/09/2024 Class 2 obesity in adult 03/09/2024 Family History Medical History Relation Name Comments Anemia Father Diabetes Father Stroke Father Anemia Mother Atrial fibrillation Mother COPD Mother Heart failure Mother blood clots Mother Cancer Other Relation Name Status Comments Father Mother Other Social History Tobacco Use Types Packs/Day Years Used Date Smoking Tobacco: Former Cigarettes Smokeless Tobacco: Never Tobacco Cessation:Counseling Given: Not Answered Alcohol Use Standard Drinks/Week Comments Never 0 (1 standard drink = 0.6 oz pur e alcohol) Comments Unknown Sex and Gender Information Value Date Recorded Sex Assigned at Female 03/03/2024 11:49 AM EDT Legal Sex Female 10:43 AM EDT Gender Identity Female 03/03/2024 11:49 AM EDT Sexual Orientation Not on file Last Filed Vital Signs Vital Sign Reading Time Taken Comments Blood Pressure 126/78 03/26/2024 2:38 PM EDT Pulse 88 03/09/2024 2:57 PM EDT Temperature 36.1 C (97 F) 03/09/2024 2:57 PM EDT Respiratory Rate 16 03/09/2024 2:57 PM EDT Oxygen Saturation 99% 03/09/2024 2:57 PM EDT Inhaled Oxygen Concentration - - Weight 87.1 kg (192 lb) 03/26/2024 2:38 PM EDT Height 154.9 cm (5' 1 ) 03/26/2024 2:38 PM EDT Body Mass Index 36.28 03/26/2024 2:38 PM EDT Plan of Treatment Not on file Insurance Care Teams Corn Chip Maker Relationship Specialty Start Date End Date Tobin Fuller MD PCP - General Family Medicine 03/02/24
--- OUTSIDE RECORDS SUMMARY | 2025-06-08 09:11 | XMS_ITS | Encounter Summary ---
Author Organization [facility] Address [address] [place] [address] Care Team Providers Care Irrigation Flume Layer Name Role Phone Tobin Fuller MD Primary Care Provider [phone] Dayne Abad MD Unavailable [phone] Encounter Details Date Type Department Care Team (Late st Contact Info) Description 03/05/2024 Orders Only [facility] [address] [place] [id number] Tobin Fuller MD [address] [place] [address] Social History Tobacco Use Types Packs/Day Years Used Date Smoking Tobacco: Never Assessed Comments Unknown Sex and Gender Information Value Date Recorded Sex Assigned at Female 03/03/2024 11:49 AM EDT Legal Sex Female 10:43 AM EDT Gender Identity Female 03/03/2024 11:49 AM EDT Sexual Orientation Not on file documented as of this encounter Plan of Treatment Not on file documented as of this encounter Procedures Procedure Name Priority Date/Time Associated Diagnosis Comments MISCELLANEOUS LAB TEST Routine 03/02/2024 7:41 AM EDT documented in this encounter Results * - Miscellaneous Test (03/02/2024 7:41 AM EDT) us Tobin Fuller MD LAB BLOOD ORDERABLES Final Resu lt documented in this encounter Visit Diagnoses Not on filedocumented in this encounter Care Teams Irrigation Flume Layer Relationship Specialty Start Date End Date Tobin Fuller MD PCP - General Family Medicine 03/02/24 Dayne Abad MD [address] [place] [address] PCP - [employer] 05/04/2410/03 documented as of this encounter
--- OUTSIDE RECORDS SUMMARY | 2025-06-08 09:13 | XMS_ITS | CCD ---
Author Organization [facility] Care Team Providers Care Hands Hanger Name Role Phone NON STAFF Primary Care Provider UnavailGarrett Lloyd Attending Provider [phone] GARRETT PEREZ Attending Unavailable HONEY SOLARES Attending Unavailable LANDY MCBRIDE Attending Unavailable ADA PATEL Attending Unavailable HONEY SOLARES Referring Unavailable NON STAFF Primary Care Provider UnavailPilar Chaves APRN Attending Provider NON STAFF Primary Care Unavailable Pilar Rao Attending Unavailable Pilar Rao Admitting Unavailable Shyann Terrell Attending Unavailable Uday Camara Attending Unavailable Uday Camara Admitting Unavailable Uday Camara Attending Unavailable Uday Camara Admitting Unavailable Allergies Allergy Classification Reported Allergen(s) Allergy Type Date of Onset Reaction(s) Facility (3 sources) guaiFENesin; Translations: [guaifenesin] Drug Allergy [facility] (8 sources) No Known Medication Allergies; Translations: [No Known Medication Allergies] Propensity to adverse reactions (disorder) [facility] Repository Problems Problem Classification Problem Date Documented Date Episodic/Chronic Acute posthemorrhagic anemia (7 sources) Acute posthemorrhagic anemia; Translations: [D62] Onset: 05-24-2025 Episodic Deficiency and other anemia (2 sources) Iron deficiency anemia; Translations: [Iron deficiency anemia, unspecified] 05-12-2025 Episodic Heart valve disorders (3 sources) Heart murmur; Translations: [Cardiac murmur, unspecified] 05-12-2025 Episodic Other lower respiratory disease (7 sources) Chronic pulmonary edema; Translations: [J81.1] Onset: 05-24-2025 Chronic Other lower respiratory disease (3 sources) Dyspnea; Translations: [Shortness of breath] 05-12-2025 Episodic Other lower respiratory disease (2 sources) Persistent cough; Translations: [Persistent cough] 05-12-2025 Episodic Other lower respiratory disease (1 source) Shortness of breath; Translations: [Shortness of breath] Onset: 05-12-2025 Episodic Results Test Name Value Interpretation Reference Range Facility Coding Queryon 05-30-2025 Coding Query Coding Query From: Shiana Guerra RN To: Uday Camara DO; Sent: 05/25/2025 07:41:46 EDT ! Subject: Coding Query Due Date/Time: 05/26/2025 07:41:00 EDT Caller Name: ELLEN RIVAS; Caller Number: Asa , M The following abnormal lab values are documented in the medical record. 05/24 Platelet 115.0 Patient was treated with: monitoring Please document the significance of the abnormal lab and treatment or clarify which diagnosis or condition these tests and treatments were associated with: [___]thrombocytopenia [___]Other: In responding to this request, please exercise your independent professional judgement. The fact that a question is asked does not imply that any particular answer is desired or expected. Thank you![email or web address] [id number] From: Uday Camara DO To: Shaina Guerra RN; Sent: 05/30/2025 16:32:33 EDT Subject: RE: Coding Query Caller Name: ELLEN RIVAS; Caller Number: Asa , M Thrombocytopenia Normal [facility] CBC w/Indiceson 05-26-2025 Anisocytosis Ql (Bld) PRESENT Invalid Interpretation Code [facility] Comment on above: Performed By: #### 2 [id number] #### [facility] [address] [place] [address] Erythrocyte distribution width (RBC) [Ratio] 29.7 % High 10.9-14.2 [facility] Comment on above: Performed By: #### 2 [id number] #### [facility] [address] [place] [address] Hematocrit (Bld) [Volume fraction] 24.8 % Low 34.0-46.0 [facility] Comment on above: Performed By: #### 2 [id number] #### [facility] [address] [place] [address] Hemoglobin (Bld) [Mass/Vol] 7.4 g/dL Low 12.0-16.0 [facility] Comment on above: Performed By: #### 2 [id number] #### [facility] [address] [place] [address] Hypochromasia PRESENT Invalid Interpretation Code [facility] Comment on above: Performed By: #### 2 [id number] #### [facility] [address] [place] [address] MCH (RBC) [Entitic mass] 19.4 pg Low 27.0-34.0 [facility] Comment on above: Performed By: #### 2 [id number] #### [facility] [address] [place] [address] MCHC (RBC) [Mass/Vol] 29.6 g/dL Low 31.4-36.0 [facility] Comment on above: Performed By: #### 2 [id number] #### [facility] [address] [place] [address] MCV (RBC) [Entitic vol] 65.4 fL Low 80.0-100.0 [facility] Comment on above: Performed By: #### 2 [id number] #### [facility] [address] [place] [address] Microcyte PRESENT Invalid Interpretation Code [facility] Comment on above: Performed By: #### 2 [id number] #### [facility] [address] [place] [address] Platelet 111.0 E9/L Low 150.0-500.0 [facility] Comment on above: Performed By: #### 2 [id number] #### [facility] [address] [place] [address] Platelet mean volume (Bld) [Entitic vol] 8.9 fL Normal 6.4-10.8 [facility] Comment on above: Performed By: #### 2 [id number] #### [facility] [address] [place] [address] RBC 3.8 E12/L Low 4.3-5.9 [facility] Comment on above: Performed By: #### 2 [id number] #### [facility] [address] [place] [address] RBC morphology finding Nom (Bld) SEE MORPHOLOGY Invalid Interpretation Code [facility] Comment on above: Performed By: #### 2 [id number] #### [facility] [address] [place] [address] WBC 6.8 E9/L Normal 4.0-11.0 [facility] Comment on above: Performed By: #### 2 [id number] #### [facility] [address] [place] [address] Inpatient Clinical Summaryon 05-26-2025 Inpatient Clinical Summary Inpatient Clinical Summary [address] [address] Clinical Summary Person Information: Name: ELLEN RIVAS Age: 54 Years : 1970 Sex: Female PCP: NONE, XXXX Marital Status: Single Race: White Ethnicity: Non- or Language: Indonesian Visit Id: Visit Reason: Cough; cough Speciality: Acuity: Enc Type: Inpatient Med Service: Medical Arrival: 05/24/2025 13:22:34 Discharge: Dispo Type: Admitted as IP to this Hosp Address: [address] [place] [id number] Provider Notes: Diagnosis: 3:Dyspnea on exertion; 4:Iron deficiency anemia Problems No Problems Documented Smoking Status: Former Smoker Functional Status: Sensory Deficits: History of Falls: Mobility Assistance Prior to Admission: Independent ADLs: Independent Current Level of Assistance for Self-Care/Mobility: Cognitive Status: Oriented x 3 Allergies No Known Medication Allergies Measurements: Height: 154.94 cm Weight: 91.1 kg Blood Pressure: 145 mmHg / 73 mmHg BMI: 36.99 kg/m2 Procedures Dilatation and curettage planned Immunizations No Immunizations Documented This Visit Final Med List: ferrous sulfate (ferrous sulfate 325 mg Tab) 1 Tablets By Mouth 2 times a day. metronidazole topical (metronidazole topical 1% gel) 1 Application Topical every day for 7 Days. Care Team Members: Attending Physician: Uday Camara DO Consulting Physician: Referring Physician: Follow up: With: Address: When: Contact [employer] Dr[facility] Perez in [place] for follow-up appointment Comments: Call for followup appointment With: Address: When: [place]X NONE , [place] Patient Education Information: Blood Transfusion, Adult, Care After, [id number]; Iron Deficiency Anemia, Adult Normal [facility] Inpatient Patient Summaryon 05-26-2025 Inpatient Patient Summary Inpatient Patient Summary ELLEN RIVAS :1970 Visit Date:05/24/2025 Inpatient Discharge Instructions Your Care Team Admitting Physician - Uday Camara DO Reason for Your Visit cough Your Diagnosis Anemia due to blood loss, acute Pulmonary edema Dyspnea on exertion Iron deficiency anemia Cough Tests Performed CTA Chest Echo Transthoracic Complete US Pelvis Non-OB Complete This Is Your Medications List ferrous sulfate (ferrous sulfate 325 mg Tab) metronidazole topical (metronidazole topical 1% gel) Procedure History Dilatation and curettage planned. Discharge Vitals Temperature (Oral) 36.9 ???C Heart Rate (Monitored) 74 Respiratory Rate 18 Blood Pressure 145/73 Weight 91.1 kg What to do next Instructions From Your Doctor Event Name Event Result Discharge Activity Ambulate as tolerated Discharge Restrictions No restrictions Discharge Diet(s) Regular Discharge Instructions RTW 05/31/2025 New Follow Up Appointments after Discharge Follow Up with Contact [employer] [facility] Perez in [place] for follow-up appointment When: Comments: Call for followup appointment Follow Up with XXXX NONE When: In 0 days Where: [place] Medications What How Much When Instructions Next Dose Unchanged ferrous sulfate (ferrous sulfate 325 mg Tab) 1 Tablets By Mouth 2 times a day 9pm 05/26/25 Unchanged metronidazole topical (metronidazole topical 1% gel) 1 Application Topical Every day Duration: 7 Days as directed Test Results CBC BMP WBC: 6.8 E9/L (05/26/25 06:22:00) Glucose Lvl: 114 mg/dL (05/25/25 05:36:00) RBC: 3.8 E12/L Low (05/26/25 06:22:00) BUN: 13 mg/dL (05/25/25 05:36:00) HGB: 7.4 gm/dL Low (05/26/25 06:22:00) Creatinine: 0.8 mg/dL (05/25/25 05:36:00) Hct: 24.8 % Low (05/26/25 06:22:00) BUN/Creat Ratio: 16 (05/25/25 05:36:00) MCV: 65.4 fL Low (05/26/25 06:22:00) Sodium Lvl: 139 mmol/L (05/25/25 05:36:00) MCH: 19.4 pg Low (05/26/25 06:22:00) Potassium Lvl: 4 mmol/L (05/25/25 05:36:00) MCHC: 29.6 gm/dL Low (05/26/25 06:22:00) Chloride: 107 mmol/L (05/25/25 05:36:00) RDW: 29.7 % High (05/26/25 06:22:00) CO2: 28 mmol/L (05/25/25 05:36:00) Platelet: 111 E9/L Low (05/26/25 06:22:00) AGAP: 8 mEq/L (05/25/25 05:36:00) MPV: 8.9 fL (05/26/25 06:22:00) Calcium Lvl: 8.5 mg/dL Low (05/25/25 05:36:00) Allergies No Known Medication Allergies Education Materials Blood Transfusion, Adult, Care After After a blood transfusion, it is common to have: ??? Bruising and soreness at the IV site. ??? A headache. Follow these instructions at home: Your doctor may give you more instructions. If you have problems, contact your doctor. Insertion site care ??? Follow instructions from your doctor about how to take care of your insertion site. This is where an IV tube was put into your vein. Make sure you: ? Wash your hands with soap and water for at least 20 seconds before and after you change your bandage. If you cannot use soap and water, use hand reproduction specialist. ? Change your bandage as told by your doctor. ??? Check your insertion site every day for signs of infection. Check for: ? Redness, swelling, or pain. ? Bleeding from the site. ? Warmth. ? Pus or a bad smell. General instructions ??? Take jyts-rji-bkqebwj and prescription medicines only as told by your doctor. ??? Rest as told by your doctor. ??? Go back to your normal activities as told by your doctor. ??? Keep all follow-up visits. You may need to have tests at certain times to check your blood. Contact a doctor if: ??? You have itching or red, swollen areas of skin (hives). ??? You have a fever or chills. ??? You have pain in the head, back, or chest. ??? You feel worried or nervous (anxious). ??? You feel weak after doing your normal activities. ??? You have any of these problems at the insertion site: ? Redness, swelling, warmth, or pain. ? Bleeding that does not stop with pressure. ? Pus or a bad smell. If you received your blood transfusion in an outpatient setting, you will be told whom to contact to report any reactions. Get help right away if: ??? You have signs of a serious reaction. This may be coming from an allergy or the body's defense system (immune system). Signs include: ? Trouble breathing or shortness of breath. ? Swelling of the face or feeling warm (flushed). ? A widespread rash. ? Dark pee (urine) or blood in the pee. ? Fast heartbeat. These symptoms may be an emergency. Get help right away. Call 911. ??? Do not wait to see if the symptoms will go away. ??? Do not drive yourself to the hospital. Summary ??? Bruising and soreness at the IV site are common. ??? Check your insertion site every day for signs of infection. ??? Rest as told by your doctor. Go back to your normal activiti (more content not included)... Normal [facility] Inpatient Patient Summary Inpatient Patient Summary [place] [id number] Patient Discharge Instructions PERSON INFORMATION Name: ELLEN RIVAS Date of : 1970 Current Date: 05/26/2025 09:36:51 PHYSICIANS Admitting Physician: Uday Camara DO Primary Care Physician: NONE, XXXX PCP Phone Number: Comment: Discharge Diagnosis: 3:Dyspnea on exertion; 4:Iron deficiency anemia Condition at Discharge: Stable ELLEN RIVAS has been given the following list of follow-up instructions, prescriptions, and patient education materials: PATIENT FOLLOW-UP INFORMATION Diet: Regular Discharge Activity: Ambulate as tolerated Discharge Restrictions: No restrictions Wound Care Instructions: Remove Your Dressing In Days Call Your Doctor For: IF UNABLE TO CONTACT YOUR PHYSICIAN AND YOU FEEL IT IS AN EMERGENCY, GO TO THE NEAREST EMERGENCY ROOM OR CALL 911 Home Treatment: Devices/Equipment: None Special Services: Additional Instructions: RTW 05/31/2025 Primary Care Physician to provide the following pending test results: Follow up: With: Address: When: Contact [employer] Dr[facility] Perez in [place] for follow-up appointment Comments: Call for followup appointment With: Address: When: XXXX NONE , [place] In the event that this physician does not participate in your insurance network, please consult with your insurance company to find a nearby participating provider. Comment: IDEVRISA SCOTTINA, have received the attached patient education materials/instruction s and have verbalized understanding: Patient Signature Date Clinican/Nurse Signature Date HERE ARE THE MEDICATION CHANGES THAT OCCURRED DURING YOUR HOSPITAL STAY Medications to Continue with No Changes Other Medications ferrous sulfate (ferrous sulfate 325 mg Tab) 1 Tablets By Mouth 2 times a day. Last Dose: ____Next Dose: ____ metronidazole topical (metronidazole topical 1% gel) 1 Application Topical every day for 7 Days. Last Dose: ____Next Dose: ____ Comment: MEDICATION LIST PROVIDED FOR YOU IS A LIST OF YOUR CURRENT MEDICATIONS. PLEASE CARRY THIS WITH YOU AT ALL TIMES. ferrous sulfate (ferrous sulfate 325 mg Tab) 1 Tablets By Mouth 2 times a day. metronidazole topical (metronidazole topical 1% gel) 1 Application Topical every day for 7 Days. Pharmacy Information: Comment: PATIENT EDUCATION INFORMATION Instructions: Blood Transfusion, Adult, Care After After a blood transfusion, it is common to have: ??? Bruising and soreness at the IV site. ??? A headache. Follow these instructions at home: Your doctor may give you more instructions. If you have problems, contact your doctor. Insertion site care ??? Follow instructions from your doctor about how to take care of your insertion site. This is where an IV tube was put into your vein. Make sure you: ? Wash your hands with soap and water for at least 20 seconds before and after you change your bandage. If you cannot use soap and water, use hand reproduction specialist. ? Change your bandage as told by your doctor. ??? Check your insertion site every day for signs of infection. Check for: ? Redness, swelling, or pain. ? Bleeding from the site. ? Warmth. ? Pus or a bad smell. General instructions ??? Take wcuo-wna-emvzzgt and prescription medicines only as told by your doctor. ??? Rest as told by your doctor. ??? Go back to your normal activities as told by your doctor. ??? Keep all follow-up visits. You may need to have tests at certain times to check your blood. Contact a doctor if: ??? You have itching or red, swollen areas of skin (hives). ??? You have a fever or chills. ??? You have pain in the head, back, or chest. ??? You feel worried or nervous (anxious). ??? You feel weak after doing your normal activities. ??? You have any of these problems at the insertion site: ? Redness, swelling, warmth, or pain. ? Bleeding that does not stop with pressure. ? Pus or a bad smell. If you received your blood transfusion in an outpatient setting, you will be told whom to contact to report any reactions. Get help right away if: ??? You have signs of a serious reaction. This may be coming from an allergy or the body's defense system (immune system). Signs include: ? Trouble breathing or shortness of breath. ? Swelling of the face or feeling warm (flushed). ? A widespread rash. ? Dark pee (urine) or blood in the pee. ? Fast heartbeat. These symptoms may be an emergency. Get help right away. Call 911. ??? Do not wait to see if the symptoms will go away. ??? Do not drive yourself to the hospital. Summary ??? Bruising and (more content not included)... Normal [facility] Interdisciplinary Note - Everardo e Manageron 05-26-2025 Interdisciplinary Note - Director Of Patient Safety Interdisciplinary Note - Director Of Patient Safety CM followed up with patient at bedside. Patient continues to deny any DC needs at this time and plan remains home when medically stable. Patient does not want assistance with setting up a PCP at this time and states he will take care of it when she gets home. Family to transport at DC. CM to follow, possible DC today. Normal [facility] Comment on above: Result Comment: Elec tronically Signed By: Lynn Donald I\.jose\Date and Time Signed: 05/26/25 11:23 EDT BMPon 05-25-2025 Anion gap [Moles/Vol] 8 mmol/L Normal 6-16 [facility] Comment on above: Performed By: #### 2 [id number] #### [facility] [address] [place] [address] BUN/Creat Ratio 16 No Units Normal 10-20 [facility] Comment on above: Performed By: #### 2 [id number] #### [facility] [address] [place] [address] Calcium [Mass/Vol] 8.5 mg/dL Low 8.9-11.1 [facility] Comment on above: Performed By: #### 2 [id number] #### [facility] [address] [place] [address] Chloride [Moles/Vol] 107 mmol/L Normal 101-111 [facility] Comment on above: Performed By: #### 2 [id number] #### [facility] [address] [place] [address] CO2 [Moles/Vol] 28 mmol/L Normal 21-31 [facility] Comment on above: Performed By: #### 2 [id number] #### [facility] [address] [place] [address] Creatinine [Mass/Vol] 0.8 mg/dL Normal 0.5-1.3 [facility] Comment on above: Performed By: #### 2 [id number] #### [facility] [address] [place] [address] Glucose [Mass/Vol] 114 mg/dL Normal 55-199 [facility] Comment on above: Performed By: #### 2 [id number] #### [facility] [address] [place] [address] Potassium [Moles/Vol] 4.0 mmol/L Normal 3.5-5.3 [facility] Comment on above: Performed By: #### 2 [id number] #### [facility] [address] [place] [address] Sodium [Moles/Vol] 139 mmol/L Normal 135-145 [facility] Comment on above: Performed By: #### 2 [id number] #### [facility] [address] [place] [address] Urea nitrogen [Mass/Vol] 13 mg/dL Normal 5-21 [facility] Comment on above: Performed By: #### 2 [id number] #### [facility] [address] [place] [address] CBC w/ Auto Diffon 5 Anisocytosis Ql (Bld) PRESENT Invalid Interpretation Code [facility] Comment on above: Performed By: #### 2 [id number] #### [facility] [address] [place] [address] Basophil Absolute 0.0 E9/L Normal 0.0-0.2 [facility] Comment on above: Performed By: #### 2 [id number] #### [facility] [address] [place] [address] Basophils/100 WBC (Bld) 0.7 % Normal 0.0-2.0 [facility] Comment on above: Performed By: #### 2 [id number] #### [facility] [address] [place] [address] Eos Absolute 0.2 E9/L Normal 0.0-0.5 [facility] Comment on above: Performed By: #### 2 [id number] #### [facility] [address] [place] [address] Eosinophils/100 WBC (Bld) 2.8 % Normal 0.0-8.0 [facility] Comment on above: Performed By: #### 2 [id number] #### [facility] [address] [place] [address] Erythrocyte distribution width (RBC) [Ratio] 29.3 % High 10.9-14.2 [facility] Comment on above: Performed By: #### 2 [id number] #### [facility] [address] [place] [address] Hematocrit (Bld) [Volume fraction] 23.6 % Low 34.0-46.0 [facility] Comment on above: Performed By: #### 2 385552 #### [facility] [address] [place] [address] Hemoglobin (Bld) [Mass/Vol] 7.2 g/dL Low 12.0-16.0 [facility] Comment on above: Performed By: #### 2 [id number] #### [facility] [address] [place] [address] Hypochromasia PRESENT Invalid Interpretation Code [facility] Comment on above: Performed By: #### 2 [id number] #### [facility] [address] [place] [address] Lymph Absolute 1.5 E9/L Normal 1.0-4.0 [facility] Comment on above: Performed By: #### 2 [id number] #### [facility] [address] [place] [address] Lymphocytes/100 WBC (Bld) 23.4 % Normal 14.0-50.0 [facility] Comment on above: Performed By: #### 2 [id number] #### [facility] [address] [place] [address] MCH (RBC) [Entitic mass] 20.4 pg Low 27.0-34.0 [facility] Comment on above: Performed By: #### 2 [id number] #### [facility] [address] [place] [address] MCHC (RBC) [Mass/Vol] 30.5 g/dL Low 31.4-36.0 [facility] Comment on above: Performed By: #### 2 [id number] #### [facility] [address] [place] [address] MCV (RBC) [Entitic vol] 66.8 fL Low 80.0-100.0 [facility] Comment on above: Performed By: #### 2 [id number] #### [facility] [address] [place] [address] Bleckley Absolute 0.5 E9/L Normal 0.2-1.0 [facility] Comment on above: Performed By: #### 2 [id number] #### [facility] [address] [place] [address] Monocytes/100 WBC (Bld) 7.3 % Normal 4.0-14.0 [facility] Comment on above: Performed By: #### 2 [id number] #### [facility] [address] [place] [address] Neutro Absolute 4.2 E9/L Normal 2.0-7.5 [facility] Comment on above: Performed By: #### 2 [id number] #### [facility] [address] [place] [address] Neutro Auto 65.8 % Normal 36.0-75.0 [facility] Comment on above: Performed By: #### 2 [id number] #### [facility] [address] [place] [address] Ovalocytes PRESENT Invalid Interpretation Code [facility] Comment on above: Performed By: #### 2 [id number] #### [facility] [address] [place] [address] Platelet 101.0 E9/L Low 150.0-500.0 [facility] Comment on above: Performed By: #### 2 [id number] #### [facility] [address] [place] [address] Platelet mean volume (Bld) [Entitic vol] 8.3 fL Normal 6.4-10.8 [facility] Comment on above: Performed By: #### 2 [id number] #### [facility] [address] [place] [address] Poikilocytosis PRESENT Invalid Interpretation Code [facility] Comment on above: Performed By: #### 2 [id number] #### [facility] [address] [place] [address] Polychromasia PRESENT Invalid Interpretation Code [facility] Comment on above: Performed By: #### 2 [id number] #### [facility] [address] [place] [address] RBC 3.5 E12/L Low 4.3-5.9 [facility] Comment on above: Performed By: #### 2 [id number] #### [facility] [address] [place] [address] RBC morphology finding Nom (Bld) SEE MORPHOLOGY Invalid Interpretation Code [facility] Comment on above: Performed By: #### 2 [id number] #### [facility] [address] [place] [address] WBC 6.4 E9/L Normal 4.0-11.0 [facility] Comment on above: Performed By: #### 2 [id number] #### [facility] [address] [place] [address] Coding Queryon 05-25-2025 Coding Query Coding Query From: Shaina Guerra RN To: Uday Camara DO; Sent: 05/25/2025 07:41:46 EDT ! Subject: Coding Query Due Date/Time: 05/26/2025 07:41:00 EDT Caller Name: ELLEN RIVAS; Caller Number: Asa , Tosha The following abnormal lab values are documented in the medical record. 05/24 Platelet 115.0 Patient was treated with: monitoring Please document the significance of the abnormal lab and treatment or clarify which diagnosis or condition these tests and treatments were associated with: [___]thrombocytopenia [___]Other: In responding to this request, please exercise your independent professional judgement. The fact that a question is asked does not imply that any particular answer is desired or expected. Thank you![email or web address] [phone] Normal [facility] Ferritinon 05-25-2025 Ferritin Lvl 2 ng/mL Low 11-307 [facility] Comment on above: Performed By: #### 2 [id number] #### [facility] [address] [place] [address] Folateon 05-25-2025 Folate Lvl 10.8 ng/mL Normal >=6.7 [facility] Comment on above: Performed By: #### 2 [id number] #### [facility] [address] [place] [address] Inpatient Clinical Summaryon 05-25-2025 Inpatient Clinical Summary Inpatient Clinical Summary [address] [address] Clinical Summary Person Information: Name: ELLEN RIVAS Age: 54 Years : 1970 Sex: Female PCP: NONE, XXXX Marital Status: Single Race: White Ethnicity: Non- or Language: Indonesian Visit Id: Visit Reason: Cough; cough Speciality: Acuity: Enc Type: Inpatient Med Service: Medical Arrival: 05/24/2025 13:22:34 Discharge: Dispo Type: Admitted as IP to this [facility] Address: [address] [place] [id number] Provider Notes: Diagnosis: 3:Dyspnea on exertion; 4:Iron deficiency anemia Problems No Problems Documented Smoking Status: Former Smoker Functional Status: Sensory Deficits: History of Falls: Mobility Assistance Prior to Admission: Independent ADLs: Independent Current Level of Assistance for Self-Care/Mobility: Cognitive Status: Oriented x 3 Allergies No Known Medication Allergies Measurements: Height: 154.94 cm Weight: 90.8 kg Blood Pressure: 140 mmHg / 85 mmHg BMI: 36.99 kg/m2 Procedures Dilatation and curettage planned Immunizations No Immunizations Documented This Visit Final Med List: ferrous sulfate (ferrous sulfate 325 mg Tab) 1 Tablets By Mouth 2 times a day. metronidazole topical (metronidazole topical 1% gel) 1 Application Topical every day for 7 Days. Care Team Members: Attending Physician: Uday Camara DO Consulting Physician: Referring Physician: Follow up: Patient Education Information: Normal [facility] Inpatient Patient Summaryon 05-25-2025 Inpatient Patient Summary Inpatient Patient Summary [place] [id number] Patient Discharge Instructions PERSON INFORMATION Name: ELLEN RIVAS Date of : 1970 Current Date: 05/25/2025 09:31:28 PHYSICIANS Admitting Physician: Uday Camara DO Primary Care Physician: NONE, XXXX PCP Phone Number: Comment: Discharge Diagnosis: 3:Dyspnea on exertion; 4:Iron deficiency anemia Condition at Discharge: ELLEN RIVAS has been given the following list of follow-up instructions, prescriptions, and patient education materials: PATIENT FOLLOW-UP INFORMATION Diet: Discharge Activity: Discharge Restrictions: Wound Care Instructions: Remove Your Dressing In Days Call Your Doctor For: IF UNABLE TO CONTACT YOUR PHYSICIAN AND YOU FEEL IT IS AN EMERGENCY, GO TO THE NEAREST EMERGENCY ROOM OR CALL 911 Home Treatment: Devices/Equipment: None Special Services: Additional Instructions: Primary Care Physician to provide the following pending test results: Follow up: In the event that this physician does not participate in your insurance network, please consult with your insurance company to find a nearby participating provider. Comment: MERY Aleman CHRISTINA, have received the attached patient education materials/instruction s and have verbalized understanding: Patient Signature Date Clinican/Nurse Signature Date HERE ARE THE MEDICATION CHANGES THAT OCCURRED DURING YOUR HOSPITAL STAY Medications to Continue with No Changes Other Medications ferrous sulfate (ferrous sulfate 325 mg Tab) 1 Tablets By Mouth 2 times a day. Last Dose: ____Next Dose: ____ metronidazole topical (metronidazole topical 1% gel) 1 Application Topical every day for 7 Days. Last Dose: ____Next Dose: ____ Comment: MEDICATION LIST PROVIDED FOR YOU IS A LIST OF YOUR CURRENT MEDICATIONS. PLEASE CARRY THIS WITH YOU AT ALL TIMES. ferrous sulfate (ferrous sulfate 325 mg Tab) 1 Tablets By Mouth 2 times a day. metronidazole topical (metronidazole topical 1% gel) 1 Application Topical every day for 7 Days. Pharmacy Information: Comment: PATIENT EDUCATION INFORMATION Instructions: Medication Leaflets: You may receive a survey from Elena Camargo asking you to rate your care experience. Your feedback is important and will help us understand what we do well and how we can improve the quality of care we provide to you, your loved ones and our community. It???s an honor to serve you. Thank you for choosing [facility] Normal [facility] Interdisciplinary Note - Everardo e Manageron 05-25-2025 Interdisciplinary Note - Director Of Patient Safety Interdisciplinary Note - Director Of Patient Safety CRM to room 214 Patient is awake, alert and oriented. Patient is from home alone. Her sister will transport at [place]. Patient verified her PCP as none ( She was given a list of PCP in area). She needs to check with her insurance company whom is excepted. Patient has no home DME. Her PLOF is independent in self care. Patient had SS consult for AD, CRM provided packet to review and she can complete them here or as an OP. Patient is inpatient. Patient is assigned to Dr Camara, see notes. Patient came in with Cough. She has a h/o iron deficiency anemia. Patient Hgb was 4.7 on 05/24, she did get 2 units of PRBC. Her HgB this AM is 7.2. Patient feels safe to return home at [place]. Patient declined any needs for DME, HH or Paramed at this time. Patient DC date TBD. CRM will get updates at 10 AM huddle. Plans for results on ECHO and Vaginal US, patient will f/u with [employer] as OP, possible DC today or 05/26 ECHO shows EF of 60-65% and Vag US shows possible Adenomyosis Patient Hgb will be rechecked in the AM and possible DC now 05/26 Patient asked how long she would be off work and per Dr Camara most likely until Saturday Normal [facility] Comment on above: Result Comment: Elec tronically Signed By: Simona Patel\.jose\Date and Time Signed: 05/25/25 14:44 EDT Interdisciplinary Note - Director Of Patient Safety Interdisciplinary Note - Director Of Patient Safety CRM to room 214 Patient is awake, alert and oriented. Patient is from home alone. Her sister will transport at [place]. Patient verified her PCP as none ( She was given a list of PCP in area). She needs to check with her insurance company whom is excepted. Patient has no home DME. Her PLOF is independent in self care. Patient had SS consult for AD, CRM provided packet to review and she can complete them here or as an OP. Patient is inpatient. Patient is assigned to Dr Camara, see notes. Patient came in with Cough. She has a h/o iron deficiency anemia. Patient Hgb was 4.7 on 05/24, she did get 2 units of PRBC. Her HgB this AM is 7.2. Patient feels safe to return home at [place]. Patient declined any needs for DME, HH or Paramed at this time. Patient DC date TBD. CRM will get updates at 10 AM huddle. Plans for results on ECHO and Vaginal US, patient will f/u with [employer] as OP, possible DC today or 05/26 Normal [facility] Comment on above: Result Comment: Elec tronically Signed By: Simona Patel\.br\Date and Time Signed: 05/25/25 11:17 EDT Ironon 05-25-2025 Iron 52 microgram/dL Normal 35-153 [facility] Comment on above: Performed By: #### 2 [id number] #### [facility] [address] [place] [id number] LDHon 05-25-2025 LDH 181 Int._Unit/L Normal 93-218 [facility] Comment on above: Performed By: #### 2 [id number] #### [facility] [address] [place] [address] Path Commenton 05-25-2025 Pathologist Comment Anti-E (anti-rh ) is an antibody directed against the E antigen, one of the Rh system antigens. Invalid Interpretation Code [facility] Comment on above: Order Comment: Order ed by System Result Comment: [Joanna ctronic Signature] Marisa Davidson MD 05/25/2025 Performed By: #### 2 [id number] #### [facility] [address] [place] [address] Path. Reviewon 05-25-2025 Path Review Microcytic hypochromic anemia with anisocytosis, microcytes and occasional ovalocytes. Polychromasia is noted. clinical correlation and follow-up is indicated to rule out iron deficiency anemia as clinically indicated. Invalid Interpretation Code [facility] Comment on above: Performed By: #### 1 [id number] #### [facility] [address] [place] [address] Retic Counton 05-25-2025 Reticulocyte 1.7 % Normal 0.5-2.2 [facility] Comment on above: Result Comment: Reti culocyte count has been corrected for anemia Performed By: #### 2 [id number] #### [facility] [address] [place] [address] TIBC Calculatedon 05-25-2025 TIBC 497 microgram/dL High 250-400 [facility] Comment on above: Performed By: #### 1 [id number] #### [facility] [address] [place] [address] Transferrin [Mass/Vol] 355 mg/dL Normal 200-370 [facility] Comment on above: Performed By: #### 1 [id number] #### [facility] [address] [place] [address] TSH With T4fr Reflexon 05-25 TSH Qn 3.10 m[IU]/L Normal 0.34-5.60 [facility] Comment on above: Performed By: #### 1 [id number] #### [facility] [address] [place] [address] US Pelvis Non-OB Completeon 05-25-2025 US Pelvis Non-OB Complete Exam Date/Time: 05/24/2025 20:19 EDT Reason for Exam: Other (please specify) Report IMPRESSION: HETEROGENEOUS UTERUS, POSSIBLY ADENOMYOSIS. OTHERWISE, NEGATIVE LIMITED ULTRASOUND OF THE PELVIS. EXAM: US Pelvis Non-OB Complete DATE: 05/24/2025 7:45 PM CLINICAL HISTORY: Technologist Comments: vaginal bleeding COMPARISON: None available. TECHNIQUE: Transabdominal ultrasound was performed of the pelvis. FINDINGS: The study is mild to moderately limited by the patient's body habitus and overlying bowel gas. The uterus is mild to moderately heterogeneous in echotexture with poor delineation of the central endometrial complex, which does not appear thickened. The uterus is anteverted and mildly anteflexed in position, without a discrete uterine mass. The left ovary appears within normal limits, with expected blood flow on Doppler analysis. The right ovary is identified. There is no significant free fluid, abnormal adnexal masses, or other findings of concern identified, within the limits of the study. The uterine measurements and estimated volume: Uterus Length: 9.9 cm Uterus Width: 6.5 cm Uterus Height: 4.4 cm Uterus Volume: 149.1 cm3 Endometrium Thickness: 0.2 cm The left ovary measurements and an estimated volume are: Left Ovary Length: 1.6 cm Left Ovary Width: 2.1 cm Left Ovary Height: 1.0 cm Left Ovary Volume: 1.8 cm3 Report Ordering Provider: Uday Camara FINAL REPORT Dictated: 05/25/2025 11:50 am Elvis Interiano MD Signed (Electronic Signature): 05/25/2025 11:50 am Signed by: Elvis Interiano MD Transcribed by: JESUS Technologist: Normal [facility] Vit B12on 05-25-2025 Cobalamin (Vitamin B12) [Mass/Vol] 256 pg/mL Normal 50-1500 [facility] Comment on above: Performed By: #### 2 [id number] #### [facility] [address] [place] [address] eGFRon 05-25-2025 eGFR 88 mL/min/1.73 m2 Normal >=59 [facility] Comment on above: Performed By: #### 1 [id number] #### [facility] [address] [place] [address] ABO/Rhon 05-24-2025 ABO/Rh Positive Invalid Interpretation Code [facility] Comment on above: Performed By: #### 2 [id number] #### [facility] [address] [place] [address] ABO/Rh History Checkon 05-24 ABO/Rh History Check Type verified by second s Normal [facility] Comment on above: Performed By: #### 1 [id number] #### [facility] [address] [place] [address] ABO/Rh Retypeon 05-24-2025 ABO/Rh Retype Interp Positive Invalid Interpretation Code [facility] Comment on above: Performed By: #### 1 [id number] #### [facility] [address] [place] [address] ABSCon 05-24-2025 ABSC Gel Interp Positive Abnormal [facility] Comment on above: Performed By: #### 1 [id number] #### [facility] [address] [place] [address] Antibody IDon 05-24-2025 Antibody ID Anti-E Invalid Interpretation Code [facility] Comment on above: Order Comment: Order ed by System Performed By: #### 2 [id number] #### [facility] [address] [place] [address] Nbr of Panels 1 Normal [facility] Comment on above: Order Comment: Order ed by System Performed By: #### 2 [id number] #### [facility] [address] [place] [address] Antigen Typeon 05-24-2025 Antigen Type E- Invalid Interpretation Code [facility] Comment on above: Performed By: #### 2 [id number] #### [facility] [address] [place] [address] Bill Patient Normal [facility] Comment on above: Performed By: #### 2 [id number] #### [facility] [address] [place] [address] BMPon 05-24-2025 Anion gap [Moles/Vol] 9 mmol/L Normal 6-16 [facility] Comment on above: Performed By: #### 2 [id number] #### [facility] [address] [place] [address] BUN/Creat Ratio 16 No Units Normal 10-20 [facility] Comment on above: Performed By: #### 2 [id number] #### [facility] [address] [place] [address] Calcium [Mass/Vol] 8.4 mg/dL Low 8.9-11.1 [facility] Comment on above: Performed By: #### 2 [id number] #### [facility] [address] [place] [address] Chloride [Moles/Vol] 109 mmol/L Normal 101-111 [facility] Comment on above: Performed By: #### 2 [id number] #### [facility] [address] [place] [address] CO2 [Moles/Vol] 25 mmol/L Normal 21-31 [facility] Comment on above: Performed By: #### 2 [id number] #### [facility] [address] [place] [address] Creatinine [Mass/Vol] 0.7 mg/dL Normal 0.5-1.3 [facility] Comment on above: Performed By: #### 2 [id number] #### [facility] [address] [place] [address] Glucose [Mass/Vol] 137 mg/dL Normal 55-199 [facility] Comment on above: Performed By: #### 2 [id number] #### [facility] [address] [place] [address] Potassium [Moles/Vol] 3.5 mmol/L Normal 3.5-5.3 [facility] Comment on above: Performed By: #### 2 [id number] #### [facility] [address] [place] [address] Sodium [Moles/Vol] 139 mmol/L Normal 135-145 [facility] Comment on above: Performed By: #### 2 [id number] #### [facility] [address] [place] [address] Urea nitrogen [Mass/Vol] 11 mg/dL Normal 5-21 [facility] Comment on above: Performed By: #### 2 [id number] #### [facility] [address] [place] [address] BNPon 05-24-2025 Natriuretic peptide B (Bld) [Mass/Vol] 86 pg/mL High 5-80 [facility] Comment on above: Performed By: #### 1 [id number] #### [facility] [address] [place] [address] Blood Bank ID#on 05-24-2025 BBID# [id number] Invalid Interpretation Code [facility] Comment on above: Performed By: #### 1 [id number] #### [facility] [address] [place] [address] CBC w/ Auto Diffon 5 Anisocytosis Ql (Bld) PRESENT Invalid Interpretation Code [facility] Comment on above: Performed By: #### 2 [id number] #### [facility] [address] [place] [address] Basophil Absolute 0.1 E9/L Normal 0.0-0.2 [facility] Comment on above: Performed By: #### 2 [id number] #### [facility] [address] [place] [address] Basophils/100 WBC (Bld) 0.9 % Normal 0.0-2.0 [facility] Comment on above: Performed By: #### 2 [id number] #### [facility] [address] [place] [address] Eos Absolute 0.2 E9/L Normal 0.0-0.5 [facility] Comment on above: Performed By: #### 2 [id number] #### [facility] [address] [place] [address] Eosinophils/100 WBC (Bld) 2.8 % Normal 0.0-8.0 [facility] Comment on above: Performed By: #### 2 [id number] #### [facility] [address] [place] [address] Erythrocyte distribution width (RBC) [Ratio] 24.0 % High 10.9-14.2 [facility] Comment on above: Performed By: #### 2 [id number] #### [facility] [address] [place] [address] Hematocrit (Bld) [Volume fraction] 16.8 % Low 34.0-46.0 [facility] Comment on above: Performed By: #### 2 [id number] #### [facility] [address] [place] [address] Hemoglobin (Bld) [Mass/Vol] 4.7 g/dL Abnormal 12.0-16.0 [facility] Comment on above: Result Comment: Crit ical Result Verified by Repeat Analysis Results called to MIGUELITO TOURE by SARATH and read back on 05/24/2025 14:27:57. Performed By: #### 2 [id number] #### [facility] [address] [place] [address] Hypochromasia PRESENT Invalid Interpretation Code [facility] Comment on above: Performed By: #### 2 [id number] #### [facility] [address] [place] [address] Lymph Absolute 1.5 E9/L Normal 1.0-4.0 [facility] Comment on above: Performed By: #### 2 [id number] #### [facility] [address] [place] [address] Lymphocytes/100 WBC (Bld) 25.2 % Normal 14.0-50.0 [facility] Comment on above: Performed By: #### 2 [id number] #### [facility] [address] [place] [address] MCH (RBC) [Entitic mass] 16.8 pg Low 27.0-34.0 [facility] Comment on above: Performed By: #### 2 [id number] #### [facility] [address] [place] [address] MCHC (RBC) [Mass/Vol] 28.1 g/dL Low 31.4-36.0 [facility] Comment on above: Performed By: #### 2 [id number] #### [facility] [address] [place] [address] MCV (RBC) [Entitic vol] 59.8 fL Low 80.0-100.0 [facility] Comment on above: Performed By: #### 2 [id number] #### [facility] [address] [place] [address] Microcyte PRESENT Invalid Interpretation Code [facility] Comment on above: Performed By: #### 2 [id number] #### [facility] [address] [place] [address] Bleckley Absolute 0.5 E9/L Normal 0.2-1.0 [facility] Comment on above: Performed By: #### 2 [id number] #### [facility] [address] [place] [address] Monocytes/100 WBC (Bld) 8.6 % Normal 4.0-14.0 [facility] Comment on above: Performed By: #### 2 800408 #### [facility] [address] [place] [address] Neutro Absolute 3.7 E9/L Normal 2.0-7.5 [facility] Comment on above: Performed By: #### 2 [id number] #### [facility] [address] [place] [address] Neutro Auto 62.5 % Normal 36.0-75.0 [facility] Comment on above: Performed By: #### 2 [id number] #### [facility] [address] [place] [address] Ovalocytes PRESENT Invalid Interpretation Code [facility] Comment on above: Performed By: #### 2 [id number] #### [facility] [address] [place] [address] Platelet 115.0 E9/L Low 150.0-500.0 [facility] Comment on above: Performed By: #### 2 [id number] #### [facility] [address] [place] [address] Platelet mean volume (Bld) [Entitic vol] 8.3 fL Normal 6.4-10.8 [facility] Comment on above: Performed By: #### 2 [id number] #### [facility] [address] [place] [address] Polychromasia PRESENT Invalid Interpretation Code [facility] Comment on above: Performed By: #### 2 [id number] #### [facility] [address] [place] [address] RBC 2.8 E12/L Low 4.3-5.9 [facility] Comment on above: Performed By: #### 2 [id number] #### [facility] [address] [place] [address] RBC morphology finding Nom (Bld) SEE MORPHOLOGY Invalid Interpretation Code [facility] Comment on above: Performed By: #### 2 [id number] #### [facility] [address] [place] [address] WBC 5.9 E9/L Normal 4.0-11.0 [facility] Comment on above: Performed By: #### 2 [id number] #### [facility] [address] [place] [address] CTA Cheston 05-24-2025 CTA Chest Exam Date/Time: 05/24/2025 15:05 EDT Reason for Exam: Shortness of breath (SOB) Report IMPRESSION: NO EVIDENCE OF PULMONARY EMBOLI. MOSAIC GROUNDGLASS PULMONARY OPACITIES, MOST LIKELY EDEMA AND/OR AIR TRAPPING. MILD CARDIOMEGALY AND CHRONIC FINDINGS, NOTED. EXAM: CTA Chest DATE: 05/24/2025 2:50 PM CLINICAL HISTORY: Shortness of breath (SOB). COMPARISON: None available TECHNIQUE: Spiral enhanced images were obtained of the chest after the infusion of intravenous contrast with pulmonary artery CTA protocol. Routine and volume rendered images were performed on a three-dimensional workstation. All CT scans at this facility use dose modulation, iterative reconstruction, and/or weight based dosing when appropriate to reduce radiation dose to as low as reasonably achievable. Unless otherwise stated, incidental findings identified in this report do not require routine follow-up imaging. FINDINGS: Pulmonary arteries: No filling defects identified to suggest pulmonary emboli. Mildly dilated centrally. Thoracic aorta: Normal in caliber without significant atherosclerotic plaquing. There is no dissection. Heart: Mild to moderately enlarged with mitral valve calcification. No significant coronary artery calcifications identified, within the limits of cardiac motion artifact. No significant pericardial effusion. Mediastinum and lymph nodes: No pathologically enlarged mediastinal, hilar, or axillary lymph nodes. Lungs and pleura: Mosaic groundglass opacities, most likely edema and/or air trapping. Trace pleural effusions. No focal consolidation, suspicious mass, worrisome nodules, or pneumothorax. Thyroid: Unremarkable. Esophagus: Unremarkable. Musculoskeletal: No acute osseous findings identified. Chronic moderate T12 compression fracture. Upper abdomen: Morphologic changes of moderate hepatic cirrhosis. Mild to moderate splenomegaly. Report GFR (mL/min/1/73m2) 103 Contrast: Isovue 370 Contrast amount in ml's: 100.00 Ordering Provider: Shyann Terrell FINAL REPORT Dictated: 05/24/2025 3:16 pm Elvis Interiano MD Signed (Electronic Signature): 05/24/2025 3:16 pm Signed by: Elivs Interiano MD Transcribed by: JESUS Technologist: JELLY Normal [facility] D-Dimeron 05-24-2025 D-Dimer 877 CD:[id number] Abnormal 215-500 [facility] Comment on above: Result Comment: Resu lts Called To Miguelito Toure / By SARATH And Read Back For Confirmation On 05/24/2025 14:41:28 EDT Results Verified By Repeat Analysis This assay is intended for use as an aid in the diagnosis of DVT or PE. These conditions cannot be excluded with certainty solely on the basis of a D-dimer concentration being within the reference range This D-Dimer assay may be used in conjunction with a non-high clinical pretest probability assessment to exclude deep-vein thrombosis(DVT). For exclusion of venous thrombosis or pulmonary embolism the analyte D-Dimer should not be used as an aid in patients with: Therapeutic dose anticoagulant therapy for >24 hours Fibrinolytic therapy within previous 7 days Trauma or surgery within previous 4 weeks Disseminated malignacies Aortic aneurysm Sepsis, severe infections, pneumonia, severe skin infections Liver cirrhosis Performed By: #### 2 [id number] #### [facility] [address] [place] [address] ED Clinical Summaryon 2024 ED Clinical Summary ED Clinical Summary [address] [address] ED Clinical Summary Person Information [facility] Age[facility] 54 Years : 1970 Sex: Female Language: Indonesian PCP: NONE, XXXX Marital Status: Single Visit Id: Visit Reason: Cough; cough Speciality: Acuity: 4 Enc Type: Inpatient Med Service: Medical Arrival: 05/24/2025 13:22:34 Discharge: LOS: 000 04:05 Checkin: 05/24/2025 13:22:34 Checkout: 05/24/2025 17:27:07 Dispo Type: Admitted as IP to this [facility] EVENTS: Event Name Event Status Request Date/Time Start Date/Time Complete Date/Time Arrive Complete 05/24/2025 13:22:34 05/24/2025 13:22:34 05/24/2025 13:22:34 Document Home Meds Request 05/24/2025 13:22:34 Triage Complete 05/24/2025 13:22:34 05/24/2025 13:34:59 05/24/2025 13:34:59 Bed Assign Complete 05/24/2025 13:27:20 05/24/2025 13:27:20 05/24/2025 13:27:20 Dr Exam Complete 05/24/2025 13:27:20 05/24/2025 13:28:06 05/24/2025 13:28:06 RN Exam Complete 05/24/2025 13:27:20 05/24/2025 13:57:56 05/24/2025 13:57:56 Registration Complete 05/24/2025 13:28:06 05/24/2025 13:49:59 05/24/2025 13:49:59 EKG Complete 05/24/2025 13:40:14 05/24/2025 13:59:31 Pending Labs Collected 05/24/2025 13:40:14 Lab Complete 05/24/2025 13:40:14 05/24/2025 14:41:35 Patient Care Complete 05/24/2025 13:40:14 05/24/2025 13:53:22 Reg Complete Request 05/24/2025 13:49:59 Reg Bed Request Complete 05/24/2025 13:49:59 05/24/2025 13:49:59 05/24/2025 13:49:59 Pending Labs Complete 05/24/2025 13:52:55 05/24/2025 13:52:55 05/24/2025 14:16:03 Lab Complete 05/24/2025 13:52:55 05/24/2025 13:52:55 05/24/2025 14:16:03 Pending Labs Complete 05/24/2025 14:01:18 05/24/2025 14:01:18 05/24/2025 14:01:19 Pending Labs Inlab 05/24/2025 14:30:00 05/24/2025 14:30:00 Meds Admin Request 05/24/2025 14:36:04 Pending Labs Complete 05/24/2025 14:36:04 05/24/2025 14:36:04 05/24/2025 15:28:15 Blood Collect Request 05/24/2025 14:36:04 05/24/2025 14:36:04 Patient Care Request 05/24/2025 14:36:04 Pending Labs Complete 05/24/2025 14:36:19 05/24/2025 15:03:29 Lab Complete 05/24/2025 14:36:19 05/24/2025 15:03:29 CT Complete 05/24/2025 14:41:55 05/24/2025 14:50:12 05/24/2025 15:05:25 Pending Labs Complete 05/24/2025 15:09:40 05/24/2025 15:09:40 05/24/2025 15:16:21 Blood Collect Start 05/24/2025 15:09:40 05/24/2025 15:09:40 Consult Request 05/24/2025 15:21:06 Hospitalist Consult Request 05/24/2025 15:21:07 Meds Admin Request 05/24/2025 15:27:33 Pending Labs Complete 05/24/2025 15:28:16 05/24/2025 15:28:16 05/24/2025 17:02:04 Blood Collect Start 05/24/2025 15:28:16 05/24/2025 15:28:16 Pending Labs Inlab 05/24/2025 15:28:17 05/24/2025 15:28:17 Pending Labs Cancel 05/24/2025 15:45:21 05/24/2025 15:48:10 Pending Labs Complete 05/24/2025 15:47:46 05/24/2025 15:47:46 05/24/2025 16:10:27 Admit Request 05/24/2025 16:02:33 Patient Care Request 05/24/2025 16:02:33 Patient Care Request 05/24/2025 16:02:35 Patient Care Request 05/24/2025 16:02:35 Patient Care Request 05/24/2025 16:02:35 Patient Care Request 05/24/2025 16:02:35 Patient Care Request 05/24/2025 16:02:37 Patient Care Request 05/24/2025 16:02:37 Meds Admin Complete 05/24/2025 16:33:04 05/24/2025 16:37:53 Pending Labs Inlab 05/24/2025 16:48:47 05/24/2025 16:48:47 Blood Collect Start 05/24/2025 16:48:47 05/24/2025 16:48:47 ADDRESS: [address] [place] [id number] PHYS DOC NOTES: MEDICAL INFORMATION: Prescriptions Given: PATIENT EDUCATION INFORMATION: Instructions: Follow up: DIAGNOSIS: 3:Dyspnea on exertion Normal [facility] ED Note-Physicianon 05-24-20 ED Note-Physician ED Note-Physician Basic Information Time Seen: Shyann Terrell M.D. 05/24/2025 13:28 Chief Complaint cough for 4 weeks, has seen [facility] with neg cxr. History of Present Illness The patient is 54-year-old female who presented to the emergency room with cough. The patient states she has been having this cough for the past 4 weeks. The patient states sometimes she will get in coughing spells and she will feel short of breath from it and her heart would race at that time. The patient denies coughing up sputum. She denies coughing up blood. The patient states she gets short of breath with exertion. The patient denies any chest pain. She denies any fever, denies any chills. The patient denies any nausea, denies any vomiting. The patient states that she has leg swelling that gets better when she is laying down. The patient denies any abdominal pain. The patient denies any recent traveling. She denies any calf pain. The patient denies any other associated symptoms. Review of Systems Additional ROS info: Except as noted in the above Review of Systems and in the History of Present Illness all other systems have been reviewed and are negative or noncontributory. Physical Exam Vitals & Measurements T: 37.1 ???C(Oral) HR: 87(Monitored) RR: 13 BP: 124/59 SpO2: 100% HT: 154 cm WT: 91.6 kg BMI: 38.62 General: alert, no acute distress Skin: warm, dry Head: no trauma, normocephalic Neck: Trachea midline, no tenderness, supple Eye: normal conjunctiva, sclera clear, EOMI, vision unchanged ENMT: Oral mucosa moist, no pharyngeal erythema or exudate Cardiovascular: regular rate and rhythm with systolic murmur Respiratory: Lungs CTA, respirations non labored, breath sounds equal Gastrointestinal: soft, non distended, no tenderness, no guarding Extremities: no deformity, no trauma, bilateral pedal edema Neurological: Alert and oriented, speech normal, no focal neuro deficits Psychiatric: cooperative, affect appropriate for age Medical Decision Making MEDICAL DECISION MAKING Number and Complexity of Problems Differential Diagnosis: [] [facility] Data External documents reviewed: [] My EKG interpretation: [] My CT interpretation: [] My X-ray interpretation: [] My Ultrasound interpretation: [] Decision rules/scores evaluated: [] Discussed with: Hospitalist Treatment and Disposition ED Course: The patient presented with shortness of breath with exertion and cough. She has a history of heavy periods and blood transfusion in the past. Blood work reviewed. Her hemoglobin is 4.7. The patient does not appear to be pale. Blood pressure is stable. D-dimer is elevated. CT angiography of the chest shows groundglass opacity concerning for pulmonary edema. The patient is not hypoxic. The patient is typed and crossed and will be transfused with 2 units of packed red blood cells. The patient is given 20 mg of Lasix IV. She will be given 10 mg of Lasix after the first unit of packed red blood cells. The case is discussed with the hospitalist and the patient will be admitted to the hospitalist services. Shared decision making: [] Code status: [] Critical Care Time: 40 minutes, critical care time is separate from any procedures that are performed. The following was considered in the determination of critical care but not limited to the level medical decision-making, intensive cardiac and/or respiratory monitor, frequent vital sign monitoring, evaluation of laboratory studies, evaluation of a radiographic studies, oxygen monitoring and constant monitoring. Assessment/Plan 1. Anemia due to blood loss, acute (D62: Acute posthemorrhagic anemia) 2. Pulmonary edema (J81.1: Chronic pulmonary edema) 3. Dyspnea on exertion (R06.09: Other forms of dyspnea) Orders: furosemide, 20 mg = 2 mL, Injection, IV Push, Once, Stop date 05/24/25 16:32:00 EDT, STAT, Start date 05/24/25 16:32:00 EDT, 05/24/25 16:32:00 EDT furosemide, 10 mg = 1 mL, Injection, IV Push, Once, Stop date 05/24/25 15:27:00 EDT, STAT, Start date 05/24/25 15:27:00 EDT, After 1st unit given, 05/24/25 15:27:00 EDT Sodium Chloride 0.9% intravenous solution 250 mL, 250 mL, IV, 20 mL/hr, PRN Other (see comment), STAT, Start date 05/24/25 14:35:00 EDT, 12.5 hour(s), Total volume (mL): 250, 91.6 kg, 1.98, m2 ABO/Rh ABO/Rh History Check ABO/Rh Retype Antibody ID Antibody Screen B-Type Natriuretic Peptide Basic Metabolic Panel Blood Bank ID# CBC w/ Auto Diff CTA Chest D-Dimer ECG 12 Lead Adult ED Physician consult Hospitalist for continued care eGFR Extra SST Tube Hemoglobin and Hematocrit Hepatic Function Panel Path. Review Pathologist Comment Procalcitonin PT & PTT Red Cell Order Saline Lock Insert Troponin 0 Hr. UA with Cult Rflx Disposition Plan Patient Discharge Condition Stable Discharge Disposition Admitted to the hospitalist Discharge Prescription List Prescriptions No active prescription medic (more content not included)... Normal [facility] Comment on above: Result Comment: Elec tronically Signed By: Hajdari MShyann Khanna\.br\Date and Time Signed: 05/24/25 16:34 EDT ED Patient Education Noteon 05-24-2025 ED Patient Education Note ED Patient Education Note Normal [facility] ED Patient Summaryon 025 ED Patient Summary ED Patient Summary [address] [address] Patient Discharge Instructions Person Information Name: ELLEN RIVAS Age: 54 Years Arrival Date: 05/24/2025 13:22:34 Discharge Diagnosis: 3:Dyspnea on exertion Primary Care Physician: NONE, XXXX Provider Information Primary Provider: Shyann Terrell M.D. [employer]:None The exam and treatment you received in the Emergency Department were for an urgent problem and are not intended as complete care. It is important that you follow up with a doctor, nurse practitioner, or physician???s physician assistant primary care for ongoing care. If your symptoms become worse or you do not improve as expected and you are unable to reach your usual health care provider, you should return to the Emergency Department. We are available 24 hours a day. ELLEN RIVAS has been given the following list of patient education materials, prescriptions and follow-up instructions: Follow-up Instructions: In the event that this physician does not participate in your insurance network, please consult with your insurance company to find a nearby participating provider. Patient Education Materials: A MESSAGE TO ALL PATIENTS REGARDING OPIOIDS PRESCRIPTION OPIOIDS: WHAT YOU NEED TO KNOW Prescription opioids can be used to help relieve dkzmdltf-rz-nkkeej pain and are often prescribed following a surgery or injury, or for certain health conditions. These medications can be an important part of the treatment but also come with serious risks. It is important to work with your healthcare provider to make sure you are getting the safest, most effective care. WHAT ARE THE RISKS AND SIDE EFFECTS OF OPIOID USE? Prescription opioids carry serious risks of addiction and overdose, especially with prolonged use. An opioid overdose, often marked by slowed breathing, can cause sudden . The use of prescription opioids can have a number of side effects as well, even when taken as directed: ??? Tolerance???meaning you might need to take more of the medication for the same pain relief ??? Physical dependence???meaning you have symptoms of withdrawal when a medication is stopped ??? Increased sensitivity to pain ??? Constipation ??? Nausea, vomiting, and dry mouth ??? Sleepiness and dizziness ??? Confusion ??? Depression ??? Low levels of testosterone that can result in lower sex drive, energy, and strength ??? Itching and sweating RISKS ARE GREATER WITH: ??? History of drug misuse, substance use disorder, or overdose ??? Mental health conditions (such as depression or anxiety) ??? Sleep apnea ??? Older age (65 years and older) ??? Avoid alcohol while taking prescription opioids. Also, unless specifically advised by your health care provider, medications to avoid include: ??? Benzodiazepines (such as Xanax or Valium) ??? Muscle relaxants (such as Soma or Flexeril) ??? Hypnotics (such as Ambien or Lunesta) ??? Other prescription opioids KNOW YOUR OPTIONS Talk to your health care provider about ways to manage your pain that don???t involve prescription opioids. Some of these options may actually work better and have fewer risks and side effects. Options may include: ??? Pain relievers such as acetaminophen, ibuprofen, and naproxen ??? Some medication that are also used for depression or seizures ??? Physical therapy and exercise ??? Cognitive behavioral therapy, a psychological, goal-directed approach, in which patients learn how to modify physical, behavioral, and emotional triggers of pain and stress. IF YOU ARE PRESCRIBED OPIOIDS FOR PAIN: ??? Never take opioids in greater amounts or more often than prescribed. ??? Follow up with your primary health care provider. o Work together to create a plan on how to manage your pain. o Talk about ways to help manage your pain that don???t involve prescription opioids. o Talk about any and all concerns and side effects. ??? Help prevent misuse and abuse o Never sell or share prescription opioids. o Never use another person???s prescription opioids. ??? Store prescription opioids in a secure place and out of reach of others (this may include visitors, children, friends, and family). ??? Safely dispose of unused prescription opioids: Find your community drug take-back program or your pharmacy mail-back program, or flush them down the toilet, following guidance from the Food and Drug Administration (www.fda.gov/Drugs/Re sourcesForYou). ??? Visit www.cdc.gov/drugoverd ose to learn about the risks of opioids abuse and overdose. ??? If you believe you may be struggling with addiction, tell your health home care companion and ask for guidance or call [facility]???S National Helpline at 9-314-577-HELP. v Source: Department of Health and Human Services/Center for Disease Control & Preven (more content not included)... Normal [facility] Hct & Hgbon 05-24-2025 Hematocrit (Bld) [Volume fraction] 16.5 % Low 34.0-46.0 [facility] Comment on above: Performed By: #### 1 [id number] #### [facility] [address] [place] [address] Hemoglobin (Bld) [Mass/Vol] 4.7 g/dL Abnormal 12.0-16.0 [facility] Comment on above: Result Comment: Crit ical Result Verified by Repeat Analysis Results called to SHAYLA BARRETO by SARATH and read back on 05/24/2025 15:03:21. Performed By: #### 1 [id number] #### [facility] [address] [place] [address] Hep Func Panelon 05-24-2025 Albumin [Mass/Vol] 3.8 g/dL Normal 3.3-5.0 [facility] Comment on above: Performed By: #### 2 [id number] #### [facility] [address] [place] [address] Albumin/Globulin [Mass ratio] 1.2 {ratio} Normal 1.1-2.2 [facility] Comment on above: Performed By: #### 2 [id number] #### [facility] [address] [place] [address] Alk Phos 66 Int._Unit/L Normal 21-98 [facility] Comment on above: Performed By: #### 2 [id number] #### [facility] [address] [place] [address] ALT 21 Int._Unit/L Normal 6-46 [facility] Comment on above: Performed By: #### 2 [id number] #### [facility] [address] [place] [address] AST 31 Int._Unit/L Normal 5-43 [facility] Comment on above: Performed By: #### 2 [id number] #### [facility] [address] [place] [address] Bili Direct 0.2 mg/dL Normal 0.0-0.4 [facility] Comment on above: Performed By: #### 2 [id number] #### [facility] [address] [place] [address] Bili Indirect 0.4 mg/dL Normal 0.1-0.9 [facility] Comment on above: Performed By: #### 2 [id number] #### [facility] [address] [place] [address] Bili Total 0.6 mg/dL Normal 0.0-1.1 [facility] Comment on above: Performed By: #### 2 [id number] #### [facility] [address] [place] [address] Globulin (S) [Mass/Vol] 3.2 g/dL Normal 1.4-4.0 [facility] Comment on above: Performed By: #### 2 [id number] #### [facility] [address] [place] [address] Protein [Mass/Vol] 7.0 g/dL Normal 6.0-7.8 [facility] Comment on above: Performed By: #### 2 [id number] #### [facility] [address] [place] [address] PT & PTTon 05-24-2025 INR Coag (PPP) [Relative time] 1.29 {INR} Invalid Interpretation Code [facility] Comment on above: Result Comment: INR results are specifically intended to assess patients stabilized on long-term Anticoagulation therapy suggested INR???s ???Less Intensive Anticoagulation??? 2.0 ??? 3.0 Conventional Range 3.0 ??? 4.5 Performed By: #### 1 [id number] #### [facility] [address] [place] [address] PT 14.5 second(s) High 9.4-12.5 [facility] Comment on above: Result Comment: 15 d ays - 4 weeks 1 - 5 months 6 -11 months 1 ??? 5 years 6 ??? 10 years 11 -17 years Mean: 11.2 (9.5 ??? 12.6) Mean: 11.0 (9.7 ??? 12.8) Mean: 11.0 (9.8 ??? 13.0) Mean: 11.3 (9.9 ??? 13.4) Mean: 11.7 (10.0 ??? 14.6) Mean: 11.8 (10.0 - 14.1) Pediatric Reference ranges were obtained from a study by rosario Santoyo prepared from 1437 samples obtained at 7 different centers using the same coagulation reagent and instrumentation as [facility]. Currently there are no coagulation studies available worldwide for children to 14 days, and no normal ranges. Performed By: #### 1 [id number] #### [facility] [address] [place] [address] PTT 33.2 second(s) Normal 25.1-36.5 [facility] Comment on above: Result Comment: Para meter 15 days - 4 weeks 1 - 5 months 6 - 11 months 1 - 5 years 6 - 10 years 11 - 17 years PTT Mean: 35.4 (27.6-45.6) Mean: 33.5 (24.8-40.7) Mean: 32.4 (25.1-40.7) Mean: 31.6 (24.0-39.2) Mean: 31.6 (26.9-38.7) Mean: 31.0 (24.6-38.4) Pediatric Reference ranges were obtained from a study by rosario Santoyo prepared from 1437 samples obtained at 7 different centers using the same coagulation reagent and instrumentation as [facility]. Currently there are no coagulation studies available worldwide for children to 14 days, and no normal ranges. Heparin therapeutic range (represented by Anti-Factor Xa activity of 0.2 - 0.4 U/mL) corresponds to PTT of 56.6 - 109.0 sec. Performed By: #### 1 [id number] #### [facility] [address] [place] [address] Procalcitoninon 05-24-2025 Procalcitonin .15 ng/mL Normal .00-.50 [facility] Comment on above: Result Comment: <0.5 ng/mL Low risk of severe sepsis and/or shock >2.0 ng/mL High risk of severe sepsis and/or shock Concentrations under 0.5 ng/mL do not exclude local infections or systemic infections in their initial stages (e.g.. under six hours from onset of illness). PCT concentrations between 0.5 and 2.0 ng/mL should be interpreted with consideration of the patient's history. In this range, it is recommended to retest PCT within 6 to 24 hours. Performed By: #### 2 [id number] #### [facility] [address] [place] [address] RCOon 05-24-2025 # of Units 2 Invalid Interpretation Code [facility] Comment on above: Performed By: #### 1 [id number] #### [facility] [address] [place], [place] [id number] Date Required [id number] Invalid Interpretation Code [facility] Comment on above: Performed By: #### 1 [id number] #### [facility] [address] [place] [address] Order to Transfuse On Hold Normal [facility] Comment on above: Performed By: #### 1 [id number] #### [facility] [address] [id number] Product Type None Required Invalid Interpretation Code [facility] Comment on above: Performed By: #### 1 [id number] #### [facility] [address] [place], [place] [id number] Troponin 0 Hr.on 05-24-2025 Troponin HS 5.50 pg/mL Low 10.10-27.10 [facility] Comment on above: Result Comment: The 95% CI (Confidence Interval) PPV (Positive Predictive Value) for myocardial infarction in females is 38 pg/mL, in males 51 pg/mL. The results should be used in conjunction with clinical conditions of myocardial infarction. (Access High Sensitivity Troponin I Instructions For Use, Montrell Damian, June 2018) Performed By: #### 1 [id number] #### [facility] [address] [place] [address] UA with Cult Rflxon 05-24-20 25 Color (U) Light-Yellow Normal Yellow [facility] Comment on above: Result Comment: Micr oscopic readings are only performed on those samples that meet specific criteria set forth by [facility]. Performed By: #### 4 [id number] #### [facility] [address] [place] [address] Glucose (U) [Mass/Vol] Negative Normal Negative [facility] Comment on above: Performed By: #### 4 [id number] #### [facility] [address] [place] [address] Ketones Ql (U) Negative Normal Negative [facility] Comment on above: Performed By: #### 4 [id number] #### [facility] [address] [place] [address] UA Blood 2+ mg/dL Abnormal Negative [facility] Comment on above: Performed By: #### 4 [id number] #### [facility] [address] [place] [address] UA Clarity Clear Normal Clear [facility] Comment on above: Performed By: #### 4 [id number] #### [facility] [address] [place] [address] UA Leuk Est Negative Normal Negative [facility] Comment on above: Performed By: #### 4 [id number] #### [facility] [address] [place] [address] UA Mucous Negative Normal Negative [facility] Comment on above: Performed By: #### 4 [id number] #### [facility] [address] [place] [address] UA Nitrite Negative Normal Negative [facility] Comment on above: Performed By: #### 4 [id number] #### [facility] [address] [place] [address] UA pH 5.5 Invalid Interpretation Code 5.0-9.0 [facility] Comment on above: Performed By: #### 4 [id number] #### [facility] [address] [place] [address] UA Protein Negative Normal Negative [facility] Comment on above: Performed By: #### 4 [id number] #### [facility] [address] [place] [address] UA RBC 4-20 Abnormal 0-3 [facility] Comment on above: Performed By: #### 4 [id number] #### [facility] [address] [place] [address] UA Spec Grav 1.033 Invalid Interpretation Code 1.005-1.030 [facility] Comment on above: Performed By: #### 4 [id number] #### [facility] [address] [place] [address] UA Squam Epithelial 0-2 Invalid Interpretation Code [facility] Comment on above: Performed By: #### 4 [id number] #### [facility] [address] [place] [address] UA Urobilinogen Negative Normal Negative [facility] Comment on above: Performed By: #### 4 [id number] #### [facility] [address] [place] [address] Urobilinogen (U) [Mass/Vol] Negative Normal Negative [facility] Comment on above: Performed By: #### 4 [id number] #### [facility] [address] [place] [address] UA Spec Desc Clean Catch Normal [facility] Comment on above: Performed By: #### 4 [id number] #### [facility] [address] [place] [address] eGFRon 05-24-2025 eGFR 103 mL/min/1.73 m2 Normal >=59 [facility] Comment on above: Performed By: #### 1 [id number] #### [facility] [address] [place] [address] X-ray reportOrdered By: Omero Mabry on 05-12-2025 Study report [facility] Main [address] [address] XRay Report Signed Patient: Ellen Rivas (Tina) MR#: [id number] : 1970 Acct:[id number] Age/Sex: 54 / F ADM Date: 5 Loc: XDUC Room: Type: REG CLI Attending Dr: Pilar Rao MINGLE OPERATOR Copies to: Pilar Rao APRN~ Ordering Provider: Pilar Rao APRN Date of Service: 05/12/25 XR/XR chest 2V*: COUGH PA AND LATERAL CHEST: CLINICAL HISTORY: Cough shortness breath COMPARISON: None FINDINGS: Mildly prominent cardiomediastinal. Lungs clear. No effusion or pneumothorax. XR/XR chest 2V* IMPRESSION: NO ACUTE CARDIOPULMONARY ABNORMALITY. Impression dictated by: Adi Mabry M.D. 05/12/2025 3:49 PM Dictation Location: [place] [address] Transcribed By: ANTOINE 05/12/25 154 Dictated By: Adi Mabry MD 05/12/25 1548 Signed By: 05/12/25 1549 [facility] Work Phone: XR chest 2V*on 05-12-2025 XR chest 2V* [facility] Main [place] [id number] XRay Report Signed Patient: Ellen Rivas (Tina) R#: [id number] : 1970 Acct:[id number] Age/Sex: 54 / F ADM Date: 05/12/25 Loc: XDUC Room: Type: REG CLI Attending Dr: Pilar Rao MINGLE OPERATOR Copies to: Pilar Rao APRN Ordering Provider: Pilar Rao APRN Date of Service: 05/12/25 XR/XR chest 2V*: COUGH PA AND LATERAL CHEST: CLINICAL HISTORY: Cough shortness breath COMPARISON: None FINDINGS: Mildly prominent cardiomediastinal. Lungs clear. No effusion or pneumothorax. XR/XR chest 2V* IMPRESSION: NO ACUTE CARDIOPULMONARY ABNORMALITY. Impression dictated by: Aid Mabry M.D. 05/12/2025 3:49 PM Dictation Location: [id number] Transcribed By: [facility] 05/12/25 1549 Dictated By: Adi Mabry MD 05/12/25 1548 Signed By: 05/12/25 1549 Normal [facility] Vital Signs Date Time Vital Sign Value Performing Clinician Faci lity 05-12-2025 15:02-0400 Body height 154.94 cm [facility] 05-12-2025 15:02-0400 Body mass index (BMI) [Ratio] 38.2 kg/m2 [facility] 05-12-2025 15:02-0400 Body temperature 99.3 [degF] [facility] 05-12-2025 15:02-0400 Body weight 91.85 kg [facility] 05-12-2025 15:02-0400 Diastolic blood pressure 76 mm[Hg] [facility] 05-12-2025 15:02-0400 Heart rate 98 /min [facility] 05-12-2025 15:02-0400 Respiratory rate 14 /min [facility] 05-12-2025 15:02-0400 SaO2% (BldA) [Mass fraction] 100 % [facility] 05-12-2025 15:02-0400 Systolic blood pressure 131 mm[Hg] [facility] Encounters Encounter Date Encounter Type Care Provider Facility Start: 05-24-2025 End: 05-26-2025 Evaluation and management of inpatient Uday Camara Facility:[facility] Start: 05-24-2025 Emergency department patient visit Shyann Lemonrefugio Facility:[facility] Start: 05-12-2025 End: 05-12-2025 ambulatory NON STAFF [facility] Work Phone: Start: 05-12-2025 End: 05-12-2025 Patient encounter procedure Pilar Maira Givens MINGLE OPERATOR [facility] Work Phone: Start: 04-02-2024 End: 04-02-2024 ambulatory ADA PATEL Not Available Start: 03-26-2024 End: 03-26-2024 ambulatory LANDY [facility] Not Available Start: 03-09-2024 End: 03-09-2024 ambulatory HONEY SOLARES Not Available Start: 03-06-2024 End: 03-06-2024 ambulatory NON STAFF [facility] Work Phone: Start: 03-06-2024 End: 03-06-2024 Departed Referred [facility] Start: 03-04-2024 End: 03-04-2024 ambulatory GARRETT PEREZ Not Available Procedures Date Procedure Procedure Detail Performing Clinician Start: 05-12-2025 Plain chest X-ray Plan of Treatment Date Care Activity Detail Author XR Chest 2 Views [facility] Payers Date Payer Category Payer Self-pay 2017 Unknown [id number] 1970 Unknown [id number] 2.16.84 [id number] 1970 Unknown [id number] 2.16.84 [id number] 1970 Unknown [id number] 2.16.84 [id number] 1970 Unknown [id number] 2.16.84 0.1.688674.3.579.2.1258 1970 Unknown [id number] 2.16.8 40.1.883621.3.579.2. 1970 Unknown [id number] 2.16.8 40.1.596554.3.579.2. 1971 Unknown [id number] 2.16.8 40.1.970024.3.579.2.727 1970 Unknown [id number] 2.16.8 40.1.315026.3.579.2.727 1970 Unknown [id number] 2.16.8 40.1.049749.3.579.2.727 1970 Unknown [id number] 2.16.8 40.1.017741.3.579.2.727 1970 Unknown [id number] 2.16.8 40.1.489624.3.579.2.727 1970 Unknown [id number] 2.16.8 40.1.744631.3.579.2.727 1970 Unknown [id number] 2.16.8 40.1.836857.3.579.2.727 Unknown [id number] 2.16.8 40.1.721064.3.579.2.531 Social History Date Type Detail Facility Tobacco smoking stat [facility] Unknown if ever smoked [facility] Work Phone: Start: 1970 Sex Assigned At Female F [facility] Start: 05-12-2025 Tobacco smoking stat [facility] Ex-smoker (finding) [facility] Sex Female (finding) [facility] Discharge summary note 05-26-2025 Note Date & Type Note Facility 05-26-2025 Note Discharge Summary Admission and Discharge Information Admit Date/Time:05/24/2025 16:02 Admitting Physician - Uday Camara DO Admitting Diagnoses: 1. Anemia due to blood loss, acute, 05/24/2025 2. Pulmonary edema, 05/24/2025 Discharge Order Date Discharge Patient - Ordered -- 05/26/25 9:22:00 EDT, to home Discharge Diagnoses 1. Anemia due to blood loss, acute, 05/24/2025 2. Pulmonary edema, 05/24/2025 3. Dyspnea on exertion, 05/24/2025 4. Iron deficiency anemia, 05/24/2025 Cough, 05/24/2025 Procedure History Dilatation and curettage planned. Hospital Course Significant Findings Please refer to history and physical details of admission. Patient presented to the emergency room May 24 because of a cough. The cough has been present for 4 weeks getting progressively worse. It is a dry cough and she denies any fevers, chills or sweats. She does report shortness of breath but no dizziness or lightheadedness and no chest pains, fatigue or weakness. She went to urgent care in [facility] last Saturday and they did a chest x-ray that was negative. They told her she had a viral illness and was told to treat her symptomatically. She was not getting any better so she came to the emergency room. She did notice some lower extremity swelling to her feet but as pretty chronic for her as she is on her feet all day at work. In the emergency room she was hypertensive at 191/81 and tachycardic at 107 bpm. The rest of her vitals were stable and she is afebrile. She had a normal white count of 5.9 but her H&H was 4.7 and 16.8 with low MCV and low MCHC. Her platelets are 115,000. Coags show PT of 14.5 and a PTT of 33.2. D-dimer was 877. Her CMP was essentially unremarkable and troponin was 5.5 and BNP 86. Procalcitonin level 0.15. Urinalysis showed 2+ blood and 4-20 RBCs but otherwise negative. With the elevated D-dimer, CTA of the chest was done and that showed mosaic groundglass pulmonary opacities which could be edema and/or air trapping and mild cardiomegaly. No PE noted. In the ER she was typed and crossed for 2 units of packed red blood cells and placed on the medical service. Patient was placed on the medical service for acute blood loss anemia and pulmonary edema found on imaging. She does have a pretty significant heart murmur that she says she has had since . She says that she has been having 3+ days of heavy periods using up to 5-6 pads a day. She has also been having clots in her periods and her last period was last month at the end of the month. As mentioned, she received 2 units of packed red blood cells. I did do a non-OB complete vaginal ultrasound performed on May 24 and it showed heterogeneous uterus possibly adenomyosis. With the cardiac murmur and pulmonary edema on imaging, I did a 2D echo. The pulmonary edema may be flash pulmonary edema given the anemia however a 2D echo was performed and it showed an EF of 60 to 65% and mild to moderate pulmonary valve stenosis. Her hemoglobin post transfusion was 7.2 yesterday and this morning at 7.4. She does have a [employer] and [place] and she will follow-up with him. She will continue her iron supplement that she takes at home but she said that in the past she has not been compliant with it. NOTE - it took 36 minutes to evaluate and coordinate patient for discharge Procedures and Treatment Provided 1. CTA of the chest 05/24/2025 2. Ultrasound pelvic complete; non-OB 05/24/2025 3. 2D echocardiogram 05/25/2025 4. Status post 2 unit packed red blood cells Services Consulted - Completed -- 05/24/25 18:23:26 EDT Physical Exam Vitals & Measurements T: 36.4 ???C(Oral) TMIN: 36.4 ???C(Oral) TMAX: 37 ???C(Oral) HR: 69(Monitored) RR: 16 BP: 150/81 SpO2: 99% WT: 91.1 kg Constitutional: Awake and alert; oriented x 3 with no apparent distress or respiratory distress Head/neck: Neck supple with no palpable lymphadenopathy, bruits or masses; trachea midline Chest/lungs: Clear to auscultation bilaterally no wheezes or rhonchi noted bilaterally Cardiovascular:Regular rate and rhythm; normal S1 and S2 with a harsh 4/6 systolic ejection murmur not radiating to her carotids; 2+ pulses and 1+ pitting edema bilaterally Gastrointestinal: Soft, nontender, nondistended, positive bowel sounds; obese Neurological: Nonfocal; cranial nerves II through XII appear intact Psychological: Pleasant affect Tests Performed CTA Chest Echo Transthoracic Complete US Pelvis Non-OB Complete Discharge Plan Patient Discharge Condition Stable Discharge Disposition Discharge To, Anticipated II - Home independently Discharged to - Home independently Discharge Diet Discharge Diet(s): Regular (05/26/25 09:20:00) Discharge Medication List Prescriptions No active prescription medications Home ferrous sulfate 325 mg Tab, 325 mg= 1 tab(s), Oral, BID metronidazole topical 1% gel, 1 leatha, Topical, Daily Follow-up With When Contact Information Contact [employer] [facility] in [facility] (more content not included)... [facility] Comment on above: Result Comment: Elec tronically Signed By: Uday Camara DO\Date and Time Signed: 05/26/25 09:56 EDT Clinical Note 05-25-2025 Note Date & Type Note Facility 05-25-2025 Note Progress Note-Physic price Assessment/Plan 54-year-old female admitted for anemia due to acute blood loss along with a cough and shortness of breath. Her last menstrual period was end of last month and she said it was heavy for 3 days with clots which is not typical of her periods. Patient has a history of vaginal polyp status post D&C a year ago in [place], heart murmur since and iron deficiency anemia. 1. Anemia due to blood loss, acute (D62: Acute posthemorrhagic anemia) - Status post 2 unit packed red blood cells - Anemia studies to come back unremarkable - Check labs in a.m. - Vaginal ultrasound shows probable adenomyosis; she wants to follow-up with her [employer] Dr[facility] Perez in [place] Ordered: Ferritin Folate Level Initial Hospital Care/Day Moderate 55 Minutes 46514 Iron Level Lactate Dehydrogenase Reticulocyte Count TIBC Calculated TSH With T4fr Reflex Vitamin B12 Level 2. Pulmonary edema (J81.1: Chronic pulmonary edema) - Most likely secondary to her profound anemia on admission - 2D echo shows an EF of 60 to 65% with mild to moderate pulmonary valve stenosis Ordered: Initial Hospital Care/Day Moderate 55 Minutes 26343 3. Dyspnea on exertion (R06.09: Other forms of dyspnea) - Secondary to anemia - Echo noted Ordered: Initial Hospital Care/Day Moderate 55 Minutes 17895 4. Iron deficiency anemia (D50.9: Iron deficiency anemia, unspecified) - I resumed her iron supplement from home - Iron studies are unremarkable Ordered: Initial Hospital Care/Day Moderate 55 Minutes 73829 Orders: acetaminophen, 650 mg = 2 tab(s), Tab, Oral, q6hr PRN Pain, Routine, Start date 05/24/25 17:39:00 EDT benzonatate, 200 mg = 2 cap(s), Cap, Oral, TID PRN Cough, Routine, Start date 05/25/25 12:46:00 EDT, 05/25/25 12:46:00 EDT ferrous sulfate, 325 mg = 1 tab(s), Tab, Oral, BID, Routine, Start date 05/25/25 21:00:00 EDT, 05/25/25 13:15:00 EDT hydrALAZINE, 10 mg = 0.5 mL, Injection, IV Push, q6hr PRN Other (see comment), Routine, Start date 05/24/25 17:39:00 EDT ondansetron, 4 mg = 2 mL, Injection, IV Push, q6hr PRN Nausea, Routine, Start date 05/24/25 17:39:00 EDT Activity As Tolerated Basic Metabolic Panel Below the Knee Intermittent Pneumatic Compression Device Cardiac Monitoring Cardiac Monitoring CBC w/ Auto Diff Communication Order Echo Transthoracic Complete eGFR Evaluate Need For Continued Telemetry Notify Provider Vital Signs Notify Provider Vital Signs Pulse Oximetry Regular Diet Resuscitation Status - Full US Pelvis Non-OB Complete Vital Signs Weight PLAN: 1. As outlined above 2. Will repeat H&H in a.m. and if stable will discharge home; she does want to follow-up with her [employer] doctor in the outpatient setting in [place] 3. I resumed her iron supplement from home 4. Full CODE STATUS Subjective Status post 2 unit packed red blood cells Doing well voicing no complaints Review of Systems Constitutional: no fever, no chills, no sweats, no weakness Respiratory: no shortness of breath, no cough, no orthopnea, no wheezing Cardiovascular: no chest pain, no palpitations, no edema Additional ROS info: Except as noted in the above Review of Systems and in the History of Present Illness all other systems have been reviewed and are negative or noncontributory. Objective Vitals & Measurements T: 36.9 ???C(Oral) TMIN: 36.5 ???C(Oral) TMAX: 37.4 ???C(Oral) HR: 77(Monitored) RR: 18 BP: 144/77 SpO2: 97% HT: 154.94 cm WT: 90.8 kg Intake & Output This visit (24 hour periods starting at 07:00 EDT) 05/25/25 * 05/24/25 05/23/25 Total Summary Intake mL -- 663 -- Output mL -- -- -- Fluid Balance -- 663 -- Intake (2) Blood Volume Infused mL -- 660 -- furosemide mL -- 3 -- Total -- 663 -- Output (0) Counts (1) Urine Count -- 3 -- * This column has not completed the indicated time period. Physical Exam Constitutional: Awake and alert; oriented x 3 with no apparent distress or respiratory distress Head/neck: Neck supple with no palpable lymphadenopathy, bruits or masses; trachea midline Chest/lungs: Clear to auscultation bilaterally no wheezes or rhonchi noted bilaterally Cardiovascular:Regular rate and rhythm; normal S1 and S2 with a harsh 4/6 systolic ejection murmur not radiating to her carotids; 2+ pulses and 1+ pitting edema bilaterally Gastrointestinal: Soft, nontender, nondistended, positive bowel sounds; obese Neurological: Nonfocal; cranial nerves II through XII appear intact Psychological: Pleasant affect Lab Results WBC: 6.4 E9/L (05/25/25 05:36:00) RBC: 3.5 E12/L Low (05/25/25 05:36:00) HGB: 7.2 gm/dL Low (05/25/25 05:36:00) Hct: 23.6 % Low (05/25/25 05:36:00) MCV: 66.8 fL Low (05/25/25 05:36:00) MCH: 20.4 pg Low (05/25/25 05:36:00) MCHC: 30.5 gm/dL Low (05/25/25 05:36:00) RDW: 29.3 % High (05/25/25 05:36:00) Platelet: 101 E9/L Low (05/25/25 05:36:00) MPV: 8.3 fL ( (more content not included)... [facility] Comment on above: Result Comment: Elec tronically Signed By: Uday Camara DO\.br\Date and Time Signed: 05/25/25 13:20 EDT Clinical Note 05-25-2025 Note Date & Type Note Facility 05-25-2025 Note Echocardiology Procedure Exam Date/Time Accession # Ordering Dr. Hunter Transthoracic 05/25/2025 10:43 EDT [id number] Uday Camara DO Complete CPT code 42483 [id number] Reason for Exam (Echo Transthoracic Complete) Cardiac murmur (heart) Report [facility] [address] [place] [address] Adult Echocardiogram Report Name: ELLEN RIVAS Study Date: 05/25/2025 09:52 AM BP: 128/80 mmHg Patient Location: 2N^[id number]^01^[facility] HR: 90 : 1970 Gender: Female Height: 60.5 in Age: 54 yrs Ethnicity: [facility] Weight: 203 lb Reason For Study: Cardiac murmur (heart) BSA: 1.9 m2 History: Murmur,Obesity Ordering Physician: Silvestre^M. E\ Performed By: Anette Saenz, POOJA Interpretation Summary The left ventricle is normal in size. There is normal left ventricular wall thickness. Ejection Fraction = 60-65%. Pulmonary valve not well seen peak gradient was 39 mmHg, mean gradient 24 mmHg and calculated valve area 1.14 to 1.59 cm? overall compatible with mild to moderate pulmonary valve stenosis. Procedure A complete two-dimensional transthoracic echocardiogram was performed (2D, M-mode, spectral and color flow Doppler). Left Ventricle The left ventricle is normal in size. There is normal left ventricular wall thickness. The left ventricular ejection fraction is normal. Ejection Fraction = 60-65%. No obvious regional wall motion abnormalities noted. Left Ventricular filling pattern is abnormal for age. Left Atrium The left atrial size is normal. Echocardiology Report Right Atrium Right atrial size is normal. Right Ventricle The right ventricular systolic function is normal. The right ventricle is normal size. Aortic Valve The aortic valve is not well visualized. Aortic valve not well-visualized but likely normal. Mitral Valve Mild thickening of the mitral valve leaflets. Tricuspid Valve The tricuspid valve is grossly normal. There is trace tricuspid regurgitation. Estimated RVSP is 29.9 mmHg. Pulmonic Valve Pulmonary valve not well seen peak gradient was 39 mmHg, mean gradient 24 mmHg and calculated valve area 1.14 to 1.59 cm? overall compatible with mild to moderate pulmonary valve stenosis. Arteries The aortic root is normal in size. Venous The inferior vena cava is normal in size, and collapses normally with respiration. Effusion There is no pericardial effusion. MMode/2D Measurements & Calculations RVDd: 3.0 cm LVIDd: 5.6 cm FS: 46.9 % Ao root diam: 2.7 cm IVSd: 0.82 cm LVIDs: 3.0 cm EDV(Teich): 152.4 ml LVPWd: 0.98 cm ESV(Teich): 33.9 ml Ao root area: 5.6 cm2 EF(Teich): 77.7 % LA dimension: 4.4 cm asc Aorta Diam: 2.7 cm LVOT diam: 1.8 cm RVOT diam: 2.0 cm LVLd ap4: 8.0 cm LVOT area: 2.5 cm2 EDV(MOD-sp4): 90.9 ml LVLs ap4: 6.1 cm ESV(MOD-sp4): 36.8 ml EF(MOD-sp4): 59.5 % EDV(MOD-sp2): 111.0 ml SV(MOD-sp4): 54.1 ml TAPSE: 2.7 cm IVC Diam: 2.2 cm ESV(MOD-sp2): 41.4 ml EF(MOD-sp2): 62.7 % RVIDd/LVIDd: 0.53 EF (MOD-bp): 60.8 % LA Vol Index: 28.5 ml/m2 Doppler Measurements & Calculations Echocardiology Report MV E max amado: 118.0 cm/sec MV dec time: 0.19 sec Ao V2 max: 204.0 cm/sec LV V1 max P.6 mmHg MV A max amado: 97.4 cm/sec Ao max P.6 mmHg LV V1 mean P.0 mmHg MV E/A: 1.2 Ao V2 mean: 140.0 cm/sec LV V1 max: 170.0 cm/sec Lat Peak E' Amado: 8.9 cm/sec Ao mean P.0 mmHg LV V1 mean: 115.0 cm/sec E/E' Lat: 13.2 Ao V2 VTI: 40.2 cm LV V1 VTI: 35.2 cm Med Peak E' Amado: 7.9 cm/sec E/E' Med: 14.9 GOOD(I,D): 2.2 cm2 GOOD(V,D): 2.1 cm2 SV(LVOT): 89.3 ml PA V2 max: 304.0 cm/sec SV(RVOT): 90.5 ml TR max amado: 259.5 cm/sec PA max P.0 mmHg TR max P.9 mmHg PA V2 mean: 221.6 cm/sec RVSP(TR): 29.9 mmHg PA mean P.1 mmHg PA V2 VTI: 78.1 cm RAP systole: 3.0 mmHg AV VR: 0.83 GOOD(VTI)/BSA_phl: 1.2 FINAL REPORT Dictated: 05/25/2025 9:52 am Sanjeev Soni MD Signed (Electronic Signature): 05/25/2025 12:16 pm Signed by: Sanjeev Soni MD Transcribed by: CASE Technologist: ANGELINA [facility] History and physical note 05-24-2025 Note Date & Type Note Facility 05-24-2025 Note History and Physical Basic Information Admit Date/Time:05/24/2025 16:02 Chief Complaint cough History of Present Illness This is a 54-year-old white female whose past medical history is significant for: 1. Iron deficiency anemia 2. Vaginal polyp status post D&C 1 year ago at [place] 3. Heart murmur since Patient presented to the emergency room today because of a progressive cough for the past 4 weeks. The cough is a dry cough not getting any better. She was seen at urgent care in [place] Saturday of last week and needed a chest x-ray that was negative. She was diagnosed with a viral illness and was told to treated symptomatically. She has a harsh cough that is dry and she denies any fevers, chills or sweats. She does report shortness of breath but denies any dizziness or lightheadedness or chest pains and no fatigue or weakness. She does have some lower extremity swelling when she is on her feet all day when she works in her legs. Not swollen in the morning. Because her cough was not getting any better, she came into the ER to be evaluated. NOTE -patient is still having periods. Her last menstrual period was end of last month and she said it was heavy for 3 days with clots which is not typical with regards to the clots. On her heaviest days, she can go up to 5-6 pads a day. No pain or discomfort. She did have a D&C done a year ago in [place] for vaginal polyps. In the emergency room she is hypertensive at 191/81 and tachycardic at 107 bpm. She is breathing 18-minute satting at 100% on room air and she is afebrile. She has a 5.9 white count with no shift and her H&H is 4.7 and 16.8 with a low MCV and a low MCHC. Platelets are 115,000. Her PT is 14.5 and PTT 33.2 with a D-dimer of 877. Her CMP is unremarkable but her calcium is mildly low at 8.4. Troponin is 5.5 with a BNP of 86 and a procalcitonin of 0.15. Urinalysis shows 2+ blood and 4-20 RBCs but otherwise negative. CTA of the chest showed no PE but a mosaic groundglass pulmonary opacities which could be edema and/or air trapping along with mild cardiomegaly. In the emergency room she is typed and crossed for 2 units of packed red blood cells. She is admitted to the medical service for further evaluation and treatment for her anemia and pulmonary edema. PAST MEDICAL HISTORY see above PAST SURGICAL HISTORY 1. D&C 1 year ago at [place] for vaginal polyps FAMILY HISTORY Mother with a history of COPD Father unknown cause And older sister with diabetes alive and well And older brother alive and well 1 sister alive and well 1 sister that she was a dialysis patient 1 brother with a history of possible bone cancer No children SOCIAL HISTORY Patient is single/ She works at [employer] She smoked a long time ago when she was very young but has not since Very rare alcohol use No drug abuse history Full CODE STATUS Review of Systems Constitutional: no fever, no chills, no sweats, no weakness Skin: no Jaundice, no rash, no lesions, nopetechiae ENMT: no ear pain, no sore throat, no congestion, no hoarseness Respiratory: no shortness of breath, moderate cough, no orthopnea, no wheezing Cardiovascular: no chest pain, no palpitations, no edema Gastrointestinal: no nausea, no vomiting, no diarrhea, no GI bleeding Genitourinary: no dysuria, no hematuria, no discharge, no pain Musculoskeletal: no back pain, no trauma Neurologic: no headache, no dizziness, no numbness, no weakness Psychiatric: no sleeping problems, no irritability, no mood swings/depression. Heme/Lymph: no bleeding tendency, no bruising tendency, no petechiae, no swollen nodes Allergy/Immunologic: no seasonal allergies, no food allergies, no recurrent infections, no impaired immunity Additional ROS info: Except as noted in the above Review of Systems and in the History of Present Illness all other systems have been reviewed and are negative or noncontributory. Scoring Rodriguez Fall Risk Score: 20 (05/24/25) Physical Exam Vitals & Measurements T: 37.4 ???C(Oral) TMIN: 37.1 ???C(Oral) TMAX: 37.4 ???C(Oral) HR: 82(Peripheral) RR: 18 BP: 137/84 SpO2: 100% HT: 154.94 cm WT: 88.8 kg General: alert, no acute distress Skin: warm, dry Head: no trauma, normocephalic Neck: Trachea midline, no adenopathy, no tenderness Eye: normal conjunctiva, sclera clear ENMT: TM's clear, oral mucosa moist, no pharyngeal erythema or exudate Cardiovascular: Regular rate and rhythm; normal S1 and S2 with a harsh 4/6 systolic ejection murmur not radiating to her carotids; 2+ pulses and 1+ pitting edema bilaterally Respiratory: Lungs CTA, respirations non labored Chest wall: no deformity. Gastrointestinal: soft, non distended, no tenderness, no guarding; obese. Back: No tenderness, Normal ROM, Normal alignment. Extremities: no deformity, no trauma Neurological: oriented x 4, LOC appropriate for age, CN II-XII intact, motor strength equal & normal bilaterally, sensation equal & (more content not included)... [facility] Comment on above: Result Comment: Elec tronically Signed By: Uday Camara DO.br\Date and Time Signed: 05/24/25 18:49 EDT Evaluation note 05-12-2025 Note Date & Type Note Facility 05-12-2025 Evaluation note Diagnosis Onset Date Resolution Heart murmur acute May 12 3:01pm Persistent cough acute May 3:01pm Shortness of breath acute May 12, 2025 3:01pm [facility] Work Phone: Evaluation note Note Date & Type Note Facility Evaluation note No assessment information availa anmol [facility] Work Phone: Reason for referral (narrative) Note Date & Type Note Facility Reason for referral (narrative) No reason for referral information available [facility] Work Phone: Advance Directives No Advanced Directives Records Found Advance Directive Response Recorded Date/ Time Advance Directives No March 06, 2024 12:26pm Summary Purpose Family History No Family History Records Found Relationship Condition Age at Onset Recorded Date/T sarah beth mother Chronic obstructive pulmonary disease Unk nown Heart disease Unknown father Diabetes mellitus Unknown Chief Complaint and Reason for Visit Chief Complaint Admit Date Cough May 12, 2025 3:01p m Reason for Visit Admit Date Heart murmur May 12, 2025 3:01p m Persistent cough May 12, 2025 3:01p m Shortness of breath May 12, 2025 3:01p m Chief Complaint Admit Date Cough May 12, 2025 3:01p m Additional Source Comments Care Teams (unrecognized sec tion and content) Team Status: Active Member Role Status Dates NON STAFF Primary Care Provider Active Team Status: Inactive Member Role Status Dates NON STAFF Primary Care Provider Active Start: March 06, 2024 End: March 06, 2024 Garrett Perez Attending Provider Active Start: Levy oconnor 2023 End: March 06, 2024 Team Status: Inactive Member Role Status Dates NON STAFF Primary Care Provider Active Start: May 12, 2025 End: May 12, 2025 Pilar Rao APRN Attending Provider Active S tart: May 12, 2025 End: May 12, 2025 Team Status: Active Member Role Status Dates NON STAFF Primary Care Provider Active Start: May 12, 2025 Pilar Rao APRN Attending Provider Active S tart: May 12, 2025 Goals (unrecognized section and content) Goals may be documented in a n alternate sectionGoals may be documented in an alternate sectionGoals may be documented in an alternate section INFORMATION SOURCE (unrecogn ized section and content) DATE CREATED AUTHOR 04/03/2024 [facility] DATE CREATED AUTHOR AUTHOR'S ORGANIZ ATION 05/25/2025 [facility] DATE CREATED AUTHOR AUTHOR'S ORGANIZ ATION 05/26/2025 [facility] DATE CREATED AUTHOR AUTHOR'S ORGANIZ ATION 05/27/2025 [facility] DATE CREATED AUTHOR AUTHOR'S ORGANIZ ATION 05/31/2025 [facility] FOR RECORDS PERTAINING TO PATIENTS WHO ARE OR HAVE BEEN ENROLLED IN A CHEMICAL DEPENDENCY/SUBSTANCEABUSE PROGRAM, SOME INFORMATION MAY BE OMITTED. This clinical summary was aggregated from multiple sources. Caution should be exercised in using it in the provision of clinical care. This summary normalizes information from multiple sources, and as a consequence, information in this document may materially change the coding, format and clinical context of patient data. In addition, data may be omitted in some cases. CLINICAL DECISIONS SHOULD BE BASED ON THE PRIMARY CLINICAL RECORDS. [employer] provides no warranty or guarantee of the accuracy or completeness of information in this document.
[2025-06-08 16:50] LABS: Mean Corpuscular HGB Conc 28.9 g/dL (29.9-35.2); Mean Corpuscular Hemoglobin 29.2 pg (26.7-34.0); Mean Corpuscular Volume 100.8 fL (81.0-99.0); Platelet Count 544 10^3/uL (150-450); Red Blood Count 1.20 10^6/uL (4.20-5.40); Reticulocyte Pct Auto 19.00 % (0.60-3.10)
[2025-06-08 16:54] LABS: Hematocrit 12.1 % (36.0-48.0); Hemoglobin 3.5 g/dL (12.0-16.0); White Blood Count 37.1 10^3/uL (4.0-11.0)
--- NOTE | 2025-06-08 16:56 | PC.NURSE ---
1655: Pt. was at [facility] earlier (151) for scheduled MD visit with Dr. Ty. MD running behind and pt. had to leave. Blood work obtained before d/c. Lab phoned with critical labs Hgb 3.5, Hct 12.1, and WBC 37.1. Dr. Ty notified. Pt. phoned per this RN and instructed to go to closest ED. Pt. relays understanding.
[2025-06-08 17:01] LABS: Alanine Aminotransferase 44 U/L (14-59); Albumin Globulin Ratio 0.7; Albumin Level 3.4 g/dL (3.4-5.0); Alkaline Phosphatase 120 U/L (46-116); Anion Gap 14.6; Aspartate Amino Transferase 43 U/L (15-37); Blood Urea Nitrogen 32.0 mg/dL (7.0-18.0); Calcium 9.4 mg/dL (8.5-10.1); Carbon Dioxide 23.5 mmol/L (21.0-32.0); Chloride 104 mmol/L (98-107); Estimated GFR (African America >60 (>=60 mL/min/1.73m^2); Estimated GFR (Non-African Ame 54 (>=60 mL/min/1.73m^2); Globulin 4.9 g/dL; Glucose 153 mg/dL (74-106); Potassium 4.1 mmol/L (3.5-5.1); Sodium 138 mmol/L (136-145); Total Protein 8.3 g/dL (6.4-8.2)
[2025-06-08 17:20] LABS: Iron 258.0 ug/dL (50.0-170.0); Percent Iron Saturation 81.6 %; Total Iron Binding Capacity 316.0 ug/dL (250.0-450.0)
[2025-06-08 17:25] LABS: Basophils Abs Manual 0.37 10^3/uL (0.00-0.10); Basophils Percent Manual 1.0 % (0.2-2.0); Eosinophils Absolute Manual 0.74 10^3/uL (0.00-0.70); Eosinophils Percent Manual 2.0 % (0.9-7.0); Lymphocytes Absolute Manual 7.04 10^3/uL (1.20-3.80); Lymphocytes Percent Manual 19.0 % (20.5-60.0); Metamyelocytes Absolute Manual 0.37; Monocytes Absolute Manual 1.11 10^3/uL (0.30-0.80); Monocytes Percent Manual 3.0 % (1.7-12.0); Segmented Neut Absolute Manual 27.45 10^3/uL (1.4-6.5); Segmented Neutrophils % Manual 74.0 (43.0-75.0)
[2025-06-08 17:27] LABS: Macrocytosis 1+
[2025-06-08 17:29] LABS: Anisocytosis 4+; Polychromasia 1+; Spherocytes 1+
[2025-06-08 17:36] LABS: Ferritin 535.0 ng/mL (8.0-252.0); Folate 7.90 ng/mL (8.60-58.90)
[2025-06-10 04:07] LABS: Vitamin B12 401 pg/mL (232-1245)
== END 2025-06-08 09:09 | disposition home or self-care (01) ==
PROVIDERS: Visit Provider Internal Medicine Hematology & Oncology
DX: D50.9 Iron deficiency anemia, unspecified (principal); K90.9 Intestinal malabsorption, unspecified; D72.829 Elevated white blood cell count, unspecified
CPT/HCPCS: 36415; 80053; 82607; 82728; 82746; 83540; 83550; 83615; 85007; 85027; 85045; 85652; 86140

== ENCOUNTER 2025-06-08 17:47 | Emergency (ER) | payer BC, SELFPAY ==
[2025-06-08] VITALS (18 sets, daily range): BP systolic 99–121; BP diastolic 56–72; PULSE 102–176; TEMP 37.4–38.5; O2SAT 64–100; BMI 35.0
--- NOTE | 2025-06-08 18:09 | XR_ITS ---
The [address] [address] Patient Name: CHRISSIE ORDONEZ MRN: [id number] date: 1970 Sex: F Assigned Patient Location: ED.MAIN Current Patient Location: ED.MAIN Accession/Order Number: [id number] Exam Date: 06/08/2025 19:53 Report Date: 06/08/2025 19:54 At the request of: ROBERT ROBLEDO Procedure: XR chest 2V PA AND LATERAL CHEST: CLINICAL HISTORY: cough COMPARISON: None FINDINGS: Prominence of the cardiomediastinal silhouette. Lungs are clear. No effusion or pneumothorax. XR/XR chest 2V IMPRESSION: Cardiomegaly. Negative acute pleural-parenchymal disease. Impression dictated by: Adi Mabry M.D. 06/08/2025 7:54 PM Dictation Location: [place] [address] Electronically authenticated by: [id number] Y Date: 06/08/2025 19:54
--- NOTE | 2025-06-08 18:09 | ECG_ITS ---
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 Measurements Intervals [place] Rate: 159 P: -95663 AR: -94233 QRS: 59 QRSD: 74 T: -50 QT: 300 QTc: 389 Interpretive Statements 39433 Atrial fibrillation with rapid ventricular response [address] depression, possible subendocardial injury or digitalis effect 21632 Twave abnormality, possible lateral ischemia or digitalis effect 73219 Twave abnormality, possible inferior ischemia or digitalis effect 9150 abnormal ECG Compared to ECG 03/02/2024 01:47:46 ST (T wave) deviation now present Possible ischemia now present Sinus rhythm no longer present Electronically Signed On 06-09-2025 6:54:35 EDT by ANDREA GONZALEZ M.D.
[2025-06-08 19:08] LABS: Mean Corpuscular HGB Conc 28.5 g/dL (29.9-35.2); Mean Corpuscular Hemoglobin 29.7 pg (26.7-34.0); Mean Corpuscular Volume 104.2 fL (81.0-99.0); Platelet Count 449 10^3/uL (150-450); Red Blood Count 1.18 10^6/uL (4.20-5.40)
[2025-06-08 19:12] LABS: White Blood Count 37.3 10^3/uL (4.0-11.0)
[2025-06-08 19:13] LABS: Hematocrit 12.3 % (36.0-48.0); Hemoglobin 3.5 g/dL (12.0-16.0)
[2025-06-08 19:15] LABS: Anisocytosis 4+; Basophils Abs Manual 0.37 10^3/uL (0.00-0.10); Basophils Percent Manual 1.0 % (0.2-2.0); Eosinophils Absolute Manual 0.74 10^3/uL (0.00-0.70); Eosinophils Percent Manual 2.0 % (0.9-7.0); Lymphocytes Absolute Manual 7.08 10^3/uL (1.20-3.80); Lymphocytes Percent Manual 19.0 % (20.5-60.0); Macrocytosis 1+; Metamyelocytes Absolute Manual 0.37; Monocytes Absolute Manual 1.11 10^3/uL (0.30-0.80); Monocytes Percent Manual 3.0 % (1.7-12.0); Polychromasia 1+; Segmented Neut Absolute Manual 27.60 10^3/uL (1.4-6.5); Segmented Neutrophils % Manual 74.0 (43.0-75.0); Spherocytes 1+
[2025-06-08 19:23] LABS: INR 1.33; Partial Thromboplastin Time 22.8 sec (22.3-36.2); Prothrombin Time 13.7 sec (9.0-11.6)
[2025-06-08 19:31] LABS: SARS-CoV-2 Ag NEGATIVE (NEGATIVE)
[2025-06-08 19:33] LABS: Alanine Aminotransferase 39 U/L (14-59); Albumin Globulin Ratio 0.7; Albumin Level 3.4 g/dL (3.4-5.0); Alkaline Phosphatase 120 U/L (46-116); Anion Gap 16.3; Aspartate Amino Transferase 45 U/L (15-37); Blood Urea Nitrogen 35.0 mg/dL (7.0-18.0); Calcium 9.6 mg/dL (8.5-10.1); Carbon Dioxide 21.8 mmol/L (21.0-32.0); Chloride 104 mmol/L (98-107); Estimated GFR (African America 48 (>=60 mL/min/1.73m^2); Estimated GFR (Non-African Ame 40 (>=60 mL/min/1.73m^2); Globulin 4.7 g/dL; Glucose 180 mg/dL (74-106); Magnesium 2.1 mg/dL (1.8-2.4); Potassium 4.1 mmol/L (3.5-5.1); Sodium 138 mmol/L (136-145); Total Protein 8.1 g/dL (6.4-8.2)
[2025-06-08 19:35] LABS: Lactate/Lactic Acid 6.4 mmol/L (0.4-2.0)
--- NOTE | 2025-06-08 20:14 | ED_ITS ---
HPI - Recheck/Abnormal Lab/Rx General Chief Complaint: Recheck/Abnormal Lab/Rx Stated Complaint: ABNORMAL LAB Time Seen by Provider: 06/08/25 17:52 Source: patient Mode of arrival: Wheelchair History of Present Illness HPI narrative: Patient presents to the ED with a complaint of a hemoglobin of 3. Apparently she went to the infusion center in hematology today and she had her labs checked because she had been very short of breath and fatigued oncology checked her labs she was shown to have a hemoglobin of 3. She also has a significantly high white count of 37. Patient states she was hospitalized May 24 at another facility and she was transfused at that time. She states when she was discharged her hemoglobin was 7. She denies any bowel or bladder changes no black or bloody stool no black or bloody emesis no abdominal pain. She has had a cough and congestion she is coughing up yellowish phlegm. She does not have any chest pressure. She is short of breath on ambulation. She denies any lightheadedness or dizziness she does feel exceptionally weak. Patient's past medical history includes anemia and she does take iron and do iron infusions. Otherwise she takes no medication. MD complaint: Reports abnormal lab Related Data Previous Rx's ?Medication ?Instructions ?Recorded ferrous sulfate 325 mg (65 mg 325 mg PO BID #60 tabs 0 03/02/24 iron) tablet Allergies Allergy/AdvReac Type Severity Reaction Status Date / Time guaifenesin (From Mucinex) AdvReac double Verified 06/08/25 17:57 vision [facility] Medical History (Updated 06/08/25 @ 20:23 by VENKAT ISRAEL) Anemia ?D64.9 - Anemia, unspecified (ICD-10) Mass of uterus ?N85.8 - Other specified noninflammatory disorders of uterus (ICD-10) Iron deficiency anemia ?D50.9 - Iron deficiency anemia, unspecified (ICD-10) Heart murmur ?R01.1 - Cardiac murmur, unspecified (ICD-10) Family History (Updated 03/05/24 @ 15:21 by Isabella Rosenberg, ZAID) Other Anemia Atrial fibrillation Family history of CHF (congestive heart failure) Family history of COPD (chronic obstructive pulmonary disease) Family history of cancer Family history of diabetes mellitus Family history of stroke Social History (Updated 03/05/24 @ 15:04 by Isabella Rosenberg RN) Within the past year, how often did you have a drink containing alcohol: monthly or less Within the past year, how many standard drinks containing alcohol did you have on a typical day: 1 or 2 Total score: 0 Score interpretation: A score less than 3 is consistent with normal alcohol consumption. Smoking status: Former smoker Second hand tobacco smoke exposure: Yes Non-prescribed substance use: denies use Previous occupational history: factory Highest level of school completed/degree received: high school graduate Are you now , , , , never or living with a partner: In a typical week, how many times do you talk on the telephone with family, fr iends, or neighbors: 3 or more times per week How often do you get together with friends or relatives: 3 or more times per week How often do you attend yarsani or yazdanism services: never Little interest or pleasure in doing things: not at all Feeling down, depressed, or hopeless: not at all Feel stressed/tense/nervous/anxious/difficulty sleeping: rather much Do you think of yourself as: straight/heterosexual Gender Identity: female Exam Constitutional Vital Signs, click to edit/add: Last Vital Signs Temp 100.5 F H 06/08/25 17:58 Pulse 158 H 06/08/25 19:40 Resp 23 H 06/08/25 19:40 BP 115/57 06/08/25 19:30 Pulse Ox 100 06/08/25 19:40 O2 Del Method Nasal Cannula 06/08/25 18:58 O2 Flow Rate 2 06/08/25 18:58 Course Vital Signs Vital signs: Vital Signs Temperature 100.5 F H 06/08/25 17:58 Pulse Rate 156 H 06/08/25 17:58 Respiratory Rate 20 06/08/25 17:58 Blood Pressure 118/56 06/08/25 17:58 Pulse Oximetry 100 06/08/25 17:58 Oxygen Delivery Method Room Air 06/08/25 17:58 Temperature 100.5 F H 06/08/25 17:58 Pulse Rate 158 H 06/08/25 19:40 Respiratory Rate 23 H 06/08/25 19:40 Blood Pressure 115/57 06/08/25 19:30 Pulse Oximetry 100 06/08/25 19:40 Oxygen Delivery Method Nasal Cannula 06/08/25 18:58 Oxygen Delivery Flow Rate 2 06/08/25 18:58 MDM - Recheck/Abnormal Lab/Rx MDM Narrative Medical decision making narrative: Patient presents to the ED with a complaint of a hemoglobin of 3. Apparently she went to the infusion center in hematology today and she had her labs eleuterio cked because she had been very short of breath and fatigued oncology checked her labs she was shown to have a hemoglobin of 3. She also has a significantly high white count of 37. Patient states she was hospitalized May 24 at another facility and she was transfused at that time. She states when she was discharged her hemoglobin was 7. She denies any bowel or bladder changes no black or bloody stool no black or bloody emesis no abdominal pain. She has had a cough and congestion she is coughing up yellowish phlegm. She does not have any chest pressure. She is short of breath on ambulation. She denies any lightheadedness or dizziness she does feel exceptionally weak. Patient's past medical history includes anemia and she does take iron and do iron infusions. Otherwise she takes no medication. Patient is alert and oriented she is very pale. Abdomen is soft and nontender. She has rhonchus breath sounds. She has good air movement. She has tachycardic with an irregular rhythm. Pulses are equal in all 4 extremities. Pupils are equal and reactive oromucosa is moist. TMs are normal. No lymphadenopathy in the cervical chain. No nuchal rigidity. On lab values patient does show A lactate of 4. BUN 35, creatinine 1.3, bilirubin 4, AST 45, alk phos 118, normal at 449. Influenza and COVID are. Leukocytosis of 37.3. Hemoglobin 3.5. Hematocrit 12.3 Blood cultures drawn and she was started on IV fluid and antibiotics. Type and cross was attempted however our lab was unable to match her so labs were sent to [facility]. Discussed with Dr. Downing who admit the patient at [facility]'s Medical Records Attestation: I reviewed the patient's medical records. Lab Data Attestation: I reviewed the patient's lab results. Labs: Lab Results 06/08/25 06/08/25 Range/Units 18:26 18:35 WBC 37.3 H* (4.0-11.0) 10^3/uL RBC 1.18 L (4.20-5.40) 10^6/uL Hgb 3.5 L* (12.0-16.0) g/dL Hct 12.3 L* (36.0-48.0) % MCV 104.2 H (81.0-99.0) fL MCH 29.7 (26.7-34.0) pg MCHC 28.5 L (29.9-35.2) g/dL RDW 37.0 H (11.0-15.0) % Plt Count 449 (150-450) 10^3/uL MPV 12.1 (9.5-13.5) fL Seg Neuts % (Manual) 74.0 (43.0-75.0) Lymphocytes % (Manual) 19.0 L (20.5-60.0) % Monocytes % (Manual) 3.0 (1.7-12.0) % Eosinophils % (Manual) 2.0 (0.9-7.0) % Basophils % (Manual) 1.0 (0.2-2.0) % Metamyelocytes % 1.0 Neutrophils # (Manual) 27.60 H (1.4-6.5) 10^3/uL Lymphocytes # (Manual) 7.08 H (1.20-3.80) 10^3/uL Monocytes # (Manual) 1.11 H (0.30-0.80) 10^3/uL Eosinophils # (Manual) 0.74 H (0.00-0.70) 10^3/uL Basophils # (Manual) 0.37 H (0.00-0.10) 10^3/uL Metamyelocytes # 0.37 Polychromasia 1+ Anisocytosis 4+ Macrocytosis 1+ Spherocytes 1+ PT 13.7 H (9.0-11.6) sec INR 1.33 APTT 22.8 (22.3-36.2) sec Sodium 138 (136-145) mmol/L Potassium 4.1 (3.5-5.1) mmol/L Chloride 104 (98-107) mmol/L Carbon Dioxide 21.8 (21.0-32.0) mmol/L Anion Gap 16.3 BUN 35.0 H (7.0-18.0) mg/dL Creatinine 1.38 H (0.55-1.02) mg/dL Est GFR ( Amer) 48 L (>=60 mL/min/1.73m^2) Est GFR (Non-Af Amer) 40 L (>=60 mL/min/1.73m^2) BUN/Creatinine Ratio 25.4 Glucose 180 H (74-106) mg/dL Lactate 6.4 H* (0.4-2.0) mmol/L Calcium 9.6 (8.5-10.1) mg/dL Magnesium 2.1 (1.8-2.4) mg/dL Total Bilirubin 4.0 H (0.2-1.0) mg/dL AST 45 H (15-37) U/L ALT 39 (14-59) U/L Alkaline Phosphatase 120 H (46-116) U/L Total Protein 8.1 (6.4-8.2) g/dL Albumin 3.4 (3.4-5.0) g/dL Globulin 4.7 g/dL Albumin/Globulin Ratio 0.7 Influenza Type A Ag Negative Influenza Type B Ag Negative SARS-CoV-2 Ag (CV2AG) Negative (NEGATIVE) Blood Type A Positive Antibody Screen Positive Imaging Data Chest x-ray: Radiologist's impression: ITS Impressions Chest X-Ray 06/08/25 18:09 IMPRESSION: Cardiomegaly. Negative acute pleural-parenchymal disease. Impression dictated by: Adi Mabry M.D. 06/08/2025 7:54 PM Dictation Location: [place] [address] Electronically authenticated by: [id number] Y Date: 06/08/2025 19:54 ECG Data Attestation: I personally reviewed and interpreted this ECG as follows: ECG interpretation date: 06/08/25 ECG interpretation time: 18:10 Interpretation: In his atrial fibrillation with RVR with a rate of 159. Have some ST depression. No t wave inversion. No st elevation.. Critical Care Time Critical Care Time Critical Care Time: Yes Total Critical Care Time: 30 Attestation: 30 minutes of critical care time. Separate of billable procedures. Time was spent in additional consultation, chart reviews, direct care due to tachycardia and Abnormal labs. Discharge Plan Discharge Chief Complaint: Recheck/Abnormal Lab/Rx Clinical Impression: Anemia, Sepsis, Leukocytosis Patient Disposition: [facility] Time of Disposition Decision: 20:23 Discharge Location: [facility] Condition: Fair Mode of Transportation: EMS
--- NOTE | 2025-06-08 20:21 | ECG_ITS ---
The [facility] Test Date: 2025-06-08 Pat Name: CHRISSIE ORDONEZ Department: Room: - Gender: Female Window/Distribution Clerk: : 1970 Requested By: [id number] Order Number: [id number] Jose G MD: ANDREA GONZALEZ M.D. Measurements Intervals [place] Rate: 119 P: 55 ME: 150 QRS: 63 QRSD: 78 T: 30 QT: 298 QTc: 369 Interpretive Statements Sinus tachycardia with sinus arrhythmia [address] depression [address] & Twave abnormality 9150 abnormal ECG Compared to ECG 06/08/2025 18:07:42 Atrial fibrillation no longer present Possible ischemia no longer present ST (T wave) deviation still present Electronically Signed On 06-09-2025 6:56:53 EDT by ANDREA GONZALEZ M.D.
--- NOTE | 2025-06-08 21:31 | PC.NURSE ---
Prior to 7 PM, multiple attempts to start IV were made with and without US.. A #22 g was started to the L shoulder area and a #20 g was started to the R shoulder area per designer writer.
[2025-06-08 22:09] LABS: Glucose Urine UA NEGATIVE (NEGATIVE)
[2025-06-08 22:22] LABS: Lactate/Lactic Acid 2.6 mmol/L (0.4-2.0)
[2025-06-08 22:30] LABS: Cast Seen? SEEN #/LPF (NONE SEEN); Crystals Seen? None Seen #/HPF (None Seen)
[2025-06-08 22:31] LABS: Urine Culture Indicated YES-FRMC
[2025-06-08] MEDS: ACETAMINOPHEN 500 MG TABLET 1000 MG PO (23:04)
--- NOTE | 2025-06-08 23:41 | PC.NURSE ---
Report called to [facility] 4 progressive RN. Awaiting transport continued.
[2025-06-08 23:47] LABS: Lactate/Lactic Acid 3.5 mmol/L (0.4-2.0)
--- NOTE | 2025-06-09 00:07 | PC.NURSE ---
Superior crew here. Report given to the crew. Care relinquished.
== END 2025-06-09 00:20 | disposition short-term general hospital (02) ==
PROVIDERS: Physician Assistant; Emergency Provider Emergency Medicine
DX: A41.9 Sepsis, unspecified organism (principal); D64.9 Anemia, unspecified; D50.9 Iron deficiency anemia, unspecified; K90.9 Intestinal malabsorption, unspecified; D72.829 Elevated white blood cell count, unspecified; R06.02 Shortness of breath; R53.1 Weakness; Z87.891 Personal history of nicotine dependence; R50.9 Fever, unspecified
CPT/HCPCS: 36415; 71046; 80053; 81001; 82607; 82728; 82746; 83540; 83550; 83605; 83615; 83735; 85007; 85027; 85045; 85610; 85730; 86140; 86850; 86880; 86900; 86901; 87040; 87086; 87804; 87811; 93005; 96365; 96366; 99285; G0328; J0696